=== PATIENT | male | born 1945 | race Caucasian/White ===

== ENCOUNTER 2017-05-01 07:16 | Day surgery (SDC) | payer MEDICARE ==
[~2017-05-01 07:16] MED LIST: LACTATED RINGERS 1,000 ML IV SCH
[2017-05-01 07:40] VITALS: RESP 18; TEMP 97
[2017-05-01] MEDS ORDERED: LACTATED RINGERS 1,000 ML IV ONE (07:46)
[2017-05-01 07:49] LABS: Glucose,Whole Blood 118 mg/dL (75-99)
[2017-05-01] MEDS ORDERED: GLYCOPYRROLATE 0.2 MG/ML 2 ML VIAL ONE (08:17)
[2017-05-01] MEDS ORDERED: PROPOFOL 10 MG/ML 20 ML VIAL IV ONE (08:17)
[2017-05-01] MEDS ORDERED: LIDOCAINE 1% INJ 10MG/ML (20 ML MDV) ONE (08:17)
[2017-05-01] MEDS ORDERED: ePHEDrine SULFATE/0.9% NACL/PF 50 MG/5 ML SYRINGE IV ONE (08:17)
--- NOTE | 2017-05-01 08:52 | P.PCN ---
Date of Procedure: 05/01/17 Preoperative Diagnosis: Postoperative Diagnosis: Procedure(s) Performed: Procedure: Total colonoscopy. Preoperative diagnosis: Screening for neoplasia, patient has history of polyps. Postoperative diagnosis: Exam within normal limits. Preparation: HalfLytely prep. Sedation: Was provided by anesthesia. Brief clinical history: The patient is a 71-year-old male who is scheduled for this evaluation for screening for neoplasia because of history of polyps. His last exam was around 6 years ago. The patient has no abdominal complaints, bleeding or anemia. Procedure: With the patient on his left lateral decubitus position and after informed consent and adequate sedation, the perianal area was inspected and it did not show any fissures or fistulas. There were no masses felt on digital rectal examination. The Olympus CFQ 160L video colonoscope was then inserted in the rectum in the usual fashion and advanced to the cecum. The mucosa appeared healthy. No polyps or tumors were seen or any obvious diverticular disease or other pathology. I retroflexed the endoscope in the rectum before the endoscope was withdrawn. The patient tolerated the procedure well. Plan: The patient was reassured. He will follow up with you as planned and I recommended repeat exam in 5 years. Implants: Indications for Procedure: Operative Findings: Description of Procedure:
[2017-05-01 09:11] VITALS: BP 112/70; PULSE 67
[2017-05-01 09:11] LABS: Glucose,Whole Blood 122 mg/dL (75-99)
== END 2017-05-01 09:31 | disposition home or self-care (01) ==
LOC: ORWHC2ENDO 07:16
DX: Z12.11 Encounter for screening for malignant neoplasm of colon (principal); Z86.010 Personal history of colon polyps; I48.91 Unspecified atrial fibrillation; Z79.01 Long term (current) use of anticoagulants; I49.9 Cardiac arrhythmia, unspecified; I10 Essential (primary) hypertension; E78.5 Hyperlipidemia, unspecified; Z85.07 Personal history of malignant neoplasm of pancreas; E07.9 Disorder of thyroid, unspecified; Z79.899 Other long term (current) drug therapy
CPT/HCPCS: J2001; J2704; G0105

== ENCOUNTER → 2020-05-25 | Outpatient (CLI) | payer MEDICARE ==
[2020-05-26 02:05] LABS: Hemoglobin A1C 7.2 % (4.0-6.0)
== END | disposition home or self-care (01) ==
LOC: LABWHC1 14:36
PROVIDERS: ATTEND Family Medicine
DX: E10.9 Type 1 diabetes mellitus without complications (principal)
CPT/HCPCS: 36415; 83036

== ENCOUNTER → 2020-05-25 | Outpatient (CLI) | payer MEDICARE ==
[2020-05-25 15:49] LABS: Appearance,Urine Clear (Clear); Bilirubin,Urine Negative (Negative); Blood,Urine Negative (Negative); Color,Urine Light Yellow; Glucose,Urine (UA) Negative (Negative); Ketones,Urine Negative (Negative); Leukocyte Esterase,Urine Negative (Negative); Nitrite,Urine Negative (Negative); Protein,Urine Negative (Negative); Urobilinogen,Urine <2.0 mg/dL (<2.0)
[2020-05-25 15:57] LABS: African American GFR (CKD) >90 (>60 ml/min/1.73 sqM); Anion Gap 5 mmol/L; Blood Urea Nitrogen 16 mg/dL (9-20); Calcium 9.3 mg/dL (8.4-10.2); Carbon Dioxide 29 mmol/L (22-30); Chloride 102 mmol/L (98-107); Glucose 211 mg/dL (74-99); INR 1.1 (<1.2); Non-African American GFR(CKD) >90 (>60 ml/min/1.73 sqM); Partial Thromboplastin Time 26.7 sec (22.0-30.0); Prothrombin Time 10.9 sec (9.0-12.0); Sodium 136 mmol/L (137-145)
[2020-05-25 16:05] LABS: Basophils # (A) 0.1 k/uL (0-0.2); Basophils % (A) 1 %; Eosinophils # (A) 0.1 k/uL (0-0.7); Eosinophils % (A) 1 %; HCT 44.6 % (39.0-53.0); HGB 14.3 gm/dL (13.0-17.5); Lymphocytes # (A) 2.2 k/uL (1.0-4.8); Lymphocytes % (A) 24 %; MCH 33.7 pg (25.0-35.0); MCHC 32.1 g/dL (31.0-37.0); MCV 105.1 fL (80.0-100.0); Macrocytosis Slight; Mean Platelet Volume 7.3; Monocytes # (A) 0.5 k/uL (0-1.0); Monocytes % (A) 6 %; Neutrophils # (A) 6.3 k/uL (1.3-7.7); Neutrophils % (A) 68 %; Platelet Count 264 k/uL (150-450); RBC 4.24 m/uL (4.30-5.90); RDW 13.4 % (11.5-15.5); WBC 9.3 k/uL (3.8-10.6)
--- NOTE | 2020-05-25 16:17 | XR ---
EXAMINATION TYPE: XR chest 2V DATE OF EXAM: 05/25/2020 COMPARISON: 08/28/2012 HISTORY: Shortness of breath TECHNIQUE: Frontal and lateral views of the chest are obtained. FINDINGS: Scattered senescent parenchymal changes noted. No evidence for infiltrate. No evidence for atelectasis. Heart size is stable. Mediastinal structures are stable and grossly unremarkable. No evidence for hilar prominence. Degenerative changes dorsal spine. IMPRESSION: 1. No evidence for acute pulmonary disease.
== END | disposition home or self-care (01) ==
LOC: LABPAT 14:27
PROVIDERS: ATTEND Orthopaedic Surgery Orthopaedic Surgery of the Spine
DX: Z01.818 Encounter for other preprocedural examination (principal); Z01.812 Encounter for preprocedural laboratory examination; M43.10 Spondylolisthesis, site unspecified; Z79.01 Long term (current) use of anticoagulants
CPT/HCPCS: 71046; 80048; 81003; 85025; 85610; 85730; 87070; 93005

== ENCOUNTER 2020-06-03 06:17 | Inpatient (IN) | payer MEDICARE ==
[2020-05-28 16:04] VITALS: BMI 30.8
[~2020-06-03 06:17] MED LIST changes: +DEXAMETHASONE SOD PHOSPHATE 10 MG/ML 1 ML VIAL IV ONE; -LACTATED RINGERS 1,000 ML IV SCH; +LIDOCAINE 1% (10MG/ML) FOR IV START INTRADERMA PRN; +ONDANSETRON 4 MG/2 ML VIAL IVP ONE; +ceFAZolin 1,000 MG in SODIUM CHLORIDE 0.9% IRRIGATIO 1,000 ML IRRIGATION ONE
[2020-06-03] MEDS ORDERED: LACTATED RINGERS 1,000 ML IV ONE ×3 (06:45→12:27)
[2020-06-03 06:59] LABS: Glucose,Whole Blood 114 mg/dL (75-99)
[2020-06-03] MEDS ORDERED: PROPOFOL 10 MG/ML 20 ML VIAL IV ONE (07:32)
[2020-06-03] MEDS ORDERED: MIDAZOLAM 2 MG/2 ML VIAL ONE (07:32)
[2020-06-03] MEDS ORDERED: SUCCINYLCHOLINE CHLORIDE 100 MG/5 ML SYR IV ONE (07:32)
[2020-06-03] MEDS ORDERED: ePHEDrine SULFATE/0.9% NACL/PF 50 MG/5 ML SYRINGE IV ONE (07:32)
[2020-06-03] MEDS ORDERED: KETAMINE 10 MG/ML 20 ML VIAL ONE (07:32)
[2020-06-03] MEDS ORDERED: HEPARIN SODIUM,PORCINE 10,000 UNIT/ML 1 ML VIAL ONE (07:32)
[2020-06-03] MEDS ORDERED: ROCURONIUM 10 MG/ML (10 ML VIAL) IV ONE (07:32)
[2020-06-03] MEDS ORDERED: SODIUM CHLORIDE 0.9% IRRIG 1,000 ML BTL IRRIGATION ONE (07:32)
[2020-06-03] MEDS ORDERED: LIDOCAINE 1% INJ 10MG/ML (20 ML MDV) ONE (07:32)
[2020-06-03] MEDS ORDERED: fentaNYL (PF) 50 MCG/ML 2 ML AMP ONE (07:32)
[2020-06-03] MEDS ORDERED: HYDROmorphone (PF) 1 MG/ML ONE (07:32)
[2020-06-03] MEDS ORDERED: THROMBIN (BOVINE) 5,000 UNIT VIAL TOPICAL ONE (07:38)
[2020-06-03] MEDS ORDERED: BUPIVACAINE (PF) 0.25% 30 ML VIAL SQ ONE (07:38)
[2020-06-03] MEDS ORDERED: GELATIN SPONGE,ABSORB (LARGE) 1 EACH SPONGE TOPICAL ONE (07:38)
[2020-06-03] MEDS ORDERED: LIDOCAINE 1% INJ 10MG/ML (20 ML MDV) SQ ONE (07:38)
[2020-06-03] MEDS ORDERED: SODIUM CHLORIDE 0.9% 100 ML with ceFAZolin 2,000 MG IV ONE ×2 (12:18)
[2020-06-03] MEDS ORDERED: BENZOCAINE/MENTHOL LOZENG 1 EACH LOZENGE MUCOUS MEM PRN (14:00)
[2020-06-03] MEDS ORDERED: HYDROcodone/APAP 5-325MG 1 EACH TAB PO PRN (14:00)
[2020-06-03] MEDS ORDERED: HYDROmorphone 0.5 MG/0.5 ML SYRINGE IVP PRN (14:00)
[2020-06-03] MEDS ORDERED: MAGNESIUM HYDROXIDE 2,400 MG/10 ML CUP PO PRN (14:00)
[2020-06-03] MEDS ORDERED: ONDANSETRON 4 MG/2 ML VIAL IVP PRN (14:00)
[2020-06-03] MEDS ORDERED: ACETAMINOPHEN TAB 500 MG TAB PO PRN (14:02)
--- NOTE | 2020-06-03 14:13 | P.OP ---
Date of Procedure: 06/03/20 Preoperative Diagnosis: Spinal stenosis L2-3 L3 4 L4 5, spondylolisthesis L2-3 L3 4, recurrent stenosis L2-3 L3 4 with history of laminectomy, degenerative disc disease, lower extremity radiculopathy, low back pain Postoperative Diagnosis: Same Anesthesia: GETA Pathology: none sent Condition: stable Disposition: PACU Description of Procedure: DESCRIPTION OF PROCEDURE(S): BRIEF OPERATIVE NOTE Preoperative Diagnosis: Spinal stenosis L2-3 L3 4 L4 5, spondylolisthesis L2-3 L3 4, recurrent stenosis L2-3 L3 4 with history of laminectomy, degenerative disc disease, lower extremity radiculopathy, low back pain Postoperative Diagnosis: Same, with incidental 2 mm durotomy which was closed primarily at surgery Procedure: Revision Laminectomy and decompression L2-3 L3 4 Laminectomy decompression L4 to 3 L3 4 L4 5 Computer navigation aided with CT 3-D reconstruction Minimally invasive Posterior lateral decompression and fusion L2-3 L3 4 L4 5 Use of computer navigation with 3-D reconstruction Minimally invasive Transforaminal lumbar interbody fusion for a 360 fusion L2-3 L3 4 L4 5 Discectomy for decompression L2-3 L3 4 L4 5 Placement of interbody graft L2-3 L3 4 L4 5 Use of computer navigation for fusion L2-3 4 and 5 Local autogenous bone grafting Aspiration of bone marrow from the pedicle of L2 on the right Repair of incidental 2 mm durotomy Use of bone graft extenders and use of Tisseel Surgeon: Dr. Cochran Veterinary Technologist: Damian HAWKINS who is present throughout the entire the case persistence during positioning, dissection, exposure, visualization, and all crucial elements of the case as well as closure. Anesthesia: General anesthesia per Dr. Dr. Denson Estimated blood loss: Approximately 500 mL with 200 given back through Cell [employer] Complications: We did have a 2 mm incidental durotomy at the level of L2-3 which was fixed primarily for a watertight closure and covered with Tisseel. Otherwise None apparent Components implanted: K2M minimally invasive Ventress pedicle screw system withscrews measuring 6.5 mm in diameter to rods one Katy interbody cage with 10 mL of osteo amp bio4 bone graft substitute and 30 mL of the BX bone fibers to supplement the local autogenous bone graft and bone marrow aspirate, as well as approximately 2 mL of Tisseel Disposition: To recovery room in good stable condition. OPERATIVE INDICATIONS The patient has had severe issues at their lower extremities particularly on the right side and severe pain in his low back for the past several years. Over the past few months however the patient had severe worsening of his pain at her back and her right lower extremity. he is having severe radicular symptoms at his right lower extremity with weakness. he is unable to obtain any comfort. We did aggressive conservative treatment with medications therapy and interventional pain management however she was not having any relief. His imaging showed severe stenosis at L2-3 L3 4 and L4 5 with recurrent stenosis L2- 3 and L3 4 with spondylolisthesis L2-3 L3 4. he also showed evidence of a listhesis with some dynamic instability particularly at L3 4. The patient has been through conservative treatment. We discussed various treatment options including surgery, and the patient wishes to proceed with surgery We discussed the risk, patient's alternatives and benefits of surgery including but not limited to, risk of bleeding risk of infection, risk of need for further surgery, risk of decreased, loss of motion, muscle function, malunion nonunion, hardware failure, nerve damage, paralysis, heart attack, blindness and . She understood issues with the current pandemic and the possibility of exposure. OPERATIVE SUMMARY After discussing all the risks, patient alternatives and benefits at length, the patient elected to proceed with surgical intervention, signed informed consent, and presented for their procedure. The patient was seen and examined in the preoperative holding area and the surgical site was marked. The patient was given antibiotics and brought to the operating room. The patient was sedated and intubated by anesthesia in standard fashion. The patient was positioned on to the operating room table in a prone position on the appropriate frame which was well-padded and well molded. We were careful to pad any bony prominences and pressure points. We were careful to maintain the patient's cervical spine and good neutral alignment and position throughout. The patient was prepped and draped in a normal standard fashion. An appropriate timeout and keystone protocol performed. We were able to proceed with the surgery. The local wound area was infiltrated with local anesthetic. I established bony reference point with the right iliac crest with 2 small stab incisions and to set screws to establish the reference point for the C-arm and CT navigation. This was done without any comfort dictation. With the appropriate levels confirmed was able to make small stab incisions over the appropriate pedicle sites bilaterally. Utilizing C-arm and the CT the computer navigation device I was able to establish bony landmarks at the right iliac crest for a bony reference point for the navigation device. We had excellent Reconstruction and visualization. Using CT guidance in multiple images with the reference points I was able to establish a Jamshidi needle over the lateral aspect of the pedicle and advanced the trocar into the pedicle being careful not to breech superiorly inferiorly medially or laterally using computer navigation device. Position was confirmed regularly with AP and lateral images and axial on CT reconstruction and with the computer navigation device. I was able to establish the trocar into the pedicle appropriately into the posterior aspect of the vertebral body bilaterally at the appropriate levels. This was done at each of the pedicle positions and each of the vertebrae at L2-3 4 and 5 with the bone marrow aspirate done at L2 on the right. I was able place the guidewire into the trocar and into the vertebral body appropriately under C-arm guidance. Dissection was taken down over the wire to the appropriate starting position for the screw placed. The appropriate length screw was chosen, threaded over the guidewire and screwed appropriately into the pedicle and vertebral body under C- arm guidance in excellent alignment and position with good bony purchase. This is done at each of the screw sites at the appropriate levels. With the screws intact I extended the incision to connect the screw hole sites on the most symptomatic side on the right. I dissected down to establish access over the pars and lamina to the base of the spinous process. I was able to expose the facet joint. The capsule the facet was taken down and showed some facet arthrosis at the joint. I was able to use a combination of curettes and Kerrison rongeurs and a high-speed drill to take down the facet joint and do a facetectomy. I was able get excellent foraminal decompression and central decompression with undermining across midline to perform a laminectomy centrally and contralaterally. I was able get good central decompression. No was made at L2-3 and L3 4 revision decompression with prior laminectomy being performed. We had to take particular extra time as there was significant bony overgrowth at the L3 4 space during decompression. The ligamentum flavum was taken down to further decompress centrally and at bilateral neural foramen. I was able get excellent decompression posteriorly. I was able to expose the disc space and visualize the traversing nerve root. Note was made of some disc protrusion and disc herniation that was adherent to the traversing nerve root at the level causing further compression of the nerve root. I was able to establish a annulotomy at the appropriate level protecting soft tissue and neural structures. Note was made of some disc desiccation at the disc. I performed a complete discectomy with accommodation of curettes and rasps and scrapers. I was able get good endplate preparation at the disc space. I sized for the appropriate size interbody spacer protecting the soft tissue and neural struct ures. The wound was copiously irrigated and suctioned dry. There is no evidence of any dural tear or leak at L3 4 and L4 5. During the decompression of L2-3 I did have a small 2 mm incidental durotomy. It had over with the arachnoid still holding in the fluid. I felt that I would be safest to do a primary closure at the space. And under loupe magnification with a 6-0 Prolene I performed a primary closure of the arthrotomy for a watertight closure. The closure was covered with Tisseel. We performed a Valsalva maneuver 2 and there is no evidence of any CSF leak after the repair. I was able to pack the disc space with local autogenous bone graft as well as a small amount of bone graft which was also placed into the interbody cage itself. Protecting the soft tissue structures and neural structures I was able place the interbody cage in good alignment and good position with good fit and fill at the interbody space. His issues was confirmed with C-arm guidance. Good hemostasis maintained. There is no evidence of any dural tear or leak. The wound was irrigated and suctioned dry. With the hardware intact, intraoperative C-arm imaging was again taken which showed good alignment and position of the hardware at the appropriate levels. We were then able to measure, contour and place the rods and appropriate hardware bilaterally. I was able to place capcrews, tighten them down, and torque them with the torque screwdriver appropriately. With this intact I was able to place the local autogenous bone graft with additional bone graft enhancer as necessary into the posterior lateral gutters over the decorticated transverse processes and facet joints on the contralateral side. The remainder of the bone graft was placed over the facet joint on the contralateral side aft er taking down the facet joint capsule. With the bone graft intact, a stable construct, and good decompression at the appropriate levels, we were able to proceed with closure. Good hemostasis was maintained. There is no evidence of dural tear or leak. The fascia was closed for a watertight closure. he subcuticular tissue was closed with absorbable suture. The wound was cleaned and dried and dressed with the appropriate dressing. The drapes were broken down. The patient was gently rolled back onto their hospital bed being careful to maintain their cervical spine and good neutral alignment and position. They were woken up by anesthesia, extubated, and brought to the recovery room in good stable condition. We'll keep him supine flat in bed over the next 24-48 hours before mobilization to allow the dural repair to heal appropriately. The patient will be admitted to the hospital for appropriate postoperative care, medical management and monitoring. We will continue to follow them closely about the postoperative course.
[2020-06-03 14:14] LABS: Glucose,Whole Blood 143 mg/dL (75-99)
--- NOTE | 2020-06-03 14:29 | FL ---
EXAMINATION TYPE: FL guidance operating room, XR lumbar spine 2 or 3V DATE OF EXAM: 06/03/2020 CLINICAL HISTORY: Lumbar fusion TECHNIQUE: Fluoroscopy. COMPARISON: None. FINDINGS: Fluoroscopic guidance was provided during procedure for performing physician. A total of 20 seconds seconds of fluoroscopic time was utilized during the procedure and 5 spot images was acqui red. Please see operative report for additional details. IMPRESSION: As Above.
[2020-06-03] MEDS: HYDROmorphone 0.5 MG/0.5 ML SYRINGE IVP PRN ×2 (14:45→14:51)
[2020-06-03] MEDS: LACTATED RINGERS 1,000 ML IV SCH (15:01)
[2020-06-03] MEDS: SODIUM CHLORIDE 0.9% 1,000 ML IV SCH (15:16)
[2020-06-03 16:37] LABS: Glucose,Whole Blood 154 mg/dL (75-99)
[2020-06-03] MEDS: INSULIN ASPART (NovoLOG) 100 UNIT/ML VIAL SQ SCH (17:31)
[2020-06-03] MEDS: INSULIN DETEMIR (LEVEMIR) 100 UNIT/ML SYR SQ SCH (17:32)
[2020-06-03] MEDS: HYDROcodone/APAP 5-325MG 1 EACH TAB PO PRN ×2 (17:32→20:52)
[2020-06-03] MEDS: LIPASE 5,000/PROTEASE 17,000/AMYLASE 24,000 PO SCH (17:32)
[2020-06-03] MEDS: HYDROmorphone 1 MG/ML 1 ML SYRINGE IVP PRN ×2 (19:21→22:47)
[2020-06-03 20:48] LABS: Glucose,Whole Blood 137 mg/dL (75-99)
[2020-06-03] MEDS: FLECAINIDE 50 MG TAB PO SCH (20:52)
[2020-06-04] MEDS: HYDROcodone/APAP 5-325MG 1 EACH TAB PO PRN ×6 (01:06→22:10)
[2020-06-04] MEDS: HYDROmorphone 1 MG/ML 1 ML SYRINGE IVP PRN ×6 (02:54→23:40)
[2020-06-04] MEDS: SODIUM CHLORIDE 0.9% 1,000 ML IV SCH ×3 (04:18→19:32)
[2020-06-04] MEDS: LACTATED RINGERS 1,000 ML IV SCH (04:19)
--- NOTE | 2020-06-04 04:48 | CONS ---
CONSULTATION DATE OF SERVICE: 06/03/2020 REASON FOR CONSULTATION: Advice regarding diabetes mellitus and other medical problems requested by Dr. Cochran. HISTORY OF PRESENT ILLNESS: This 74-year-old gentleman with a past medical history of multiple medical problems including history of atrial fibrillation, history of diabetes mellitus, hypertension, hyperlipidemia, history of DJD being followed by Dr. Adán Murray in the outpatient setting underwent revision laminectomy and decompression of L2, 3, 4 and laminectomy and decompression by Dr. Cochran. The patient tolerated the procedure. The patient is complaining of some pain at this time. There is no history of any fever or rigors. No history of headache, loss of consciousness, seizures. PAST MEDICAL HISTORY: History of atrial fibrillation, diabetes mellitus, hypertension, hyperlipidemia, history of DJD, history of vascular disorder. MEDICATIONS: Home medications are lisinopril, simvastatin, Xarelto, Creon, Lantus, Humalog, Tambocor, Tylenol. Doses are reviewed. ALLERGIES: None. FAMILY HISTORY: No history of heart disease. Son had possible PE. SOCIAL HISTORY: Previous history of smoking. No history of current smoking or alcohol intake. REVIEW OF SYSTEMS: ENT: No diminished hearing or diminished vision. CARDIOVASCULAR SYSTEM: As mentioned earlier. RESPIRATORY SYSTEM: As mentioned earlier. GI: No nausea. : No dysuria. NERVOUS SYSTEM: No numbness or weakness. ALLERGY/IMMUNOLOGY: No asthma or hayfever. MUSCULOSKELETAL: As mentioned earlier. HEMATOLOGY: As mentioned earlier. ENDOCRINE: Diabetes mellitus. CONSTITUTIONAL: As mentioned earlier. DERMATOLOGY: Negative. RHEUMATOLOGY: Negative. PSYCHIATRY: As mentioned earlier. PHYSICAL EXAMINATION: The patient is alert and oriented x3. Pulse 85, blood pressure 144/74, respirations 16, temperature 97.9, pulse ox 93% on 2 L. HEENT: Conjunctivae normal. Oral mucosa moist. NECK: No jugular venous distention. No carotid bruit. No lymph node enlargement. CARDIOVASCULAR: S1, S2 muffled. No S3, no S4. RESPIRATORY: Breath sounds diminished at the bases. No rhonchi. No crackles. ABDOMEN: Soft, obese. LEGS: No edema, no swelling. NERVOUS SYSTEM: Higher function as mentioned earlier. Moves all 4 limbs. No focal motor or sensory deficits. LYMPHATICS: No lymphadenopathy of the neck, axillae or groin. SKIN: No ulcer, rash or bleeding. JOINTS: No active deforming arthropathy. EXAMINATION OF THE BACK: Status post surgery. LABS: Accu-Cheks 114, 154 otherwise hematology prior to surgery normal except MCV 105 and the chemistry was showing sodium 136. ASSESSMENT: 1. Status post revision laminectomy and decompression, L2-3, L3-4. 2. Hyponatremia in the preoperative labs. 3. Increased MCV. 4. Atrial fibrillation. 5. Diabetes mellitus type 2. 6. Hypertension. 7. Hyperlipidemia. 8. Degenerative joint disease. 9. History of pancreatic cancer in 2016. 10.History of aortic aneurysm. 11.History of spinal stenosis. 12.History of degenerative joint disease. 13.History of appendectomy. 14.History of smoking. 15.Obesity with body mass of 31. 16.FULL CODE. RECOMMENDATIONS AND DISCUSSION: This 74-year-old gentleman present after surgery at this time, recommend to continue current medications, continue symptomatic treatment. Resume the home medications. DVT prophylaxis. I would closely follow with Orthopedic Surgery. Will initiate home medications. Incentive spirometry. Recommend repeat labs, pain management, DVT prophylaxis. The patient may be asked to follow up with primary physician closely after discharge. Thank you Dr. Cochran, for letting us participate in the care of this patient. MMODL / IJN: [id number] /
[2020-06-04 06:31] LABS: Basophils # (A) 0.1 k/uL (0-0.2); Basophils % (A) 0 %; Eosinophils # (A) 0.1 k/uL (0-0.7); Eosinophils % (A) 1 %; HGB 12.7 gm/dL (13.0-17.5); Lymphocytes # (A) 1.8 k/uL (1.0-4.8); Lymphocytes % (A) 11 %; MCH 33.3 pg (25.0-35.0); MCHC 31.9 g/dL (31.0-37.0); MCV 104.6 fL (80.0-100.0); Macrocytosis Slight; Monocytes # (A) 1.3 k/uL (0-1.0); Monocytes % (A) 8 %; Neutrophils # (A) 13.1 k/uL (1.3-7.7); Neutrophils % (A) 79 %; Platelet Count 257 k/uL (150-450); RBC 3.83 m/uL (4.30-5.90); RDW 13.4 % (11.5-15.5); WBC 16.5 k/uL (3.8-10.6)
[2020-06-04 07:27] LABS: Glucose,Whole Blood 112 mg/dL (75-99)
[2020-06-04] MEDS: INSULIN ASPART (NovoLOG) 100 UNIT/ML VIAL SQ SCH ×3 (08:43→17:44)
[2020-06-04] MEDS: LIPASE 5,000/PROTEASE 17,000/AMYLASE 24,000 PO SCH ×2 (08:44→17:44)
[2020-06-04] MEDS: lisinopriL 10 MG TAB PO SCH (08:49)
[2020-06-04] MEDS: ATORVASTATIN 20 MG TAB PO SCH (08:49)
[2020-06-04] MEDS: SENNOSIDES-DOCUSATE SODIUM 1 EACH TAB PO SCH (08:49)
[2020-06-04] MEDS: FLECAINIDE 50 MG TAB PO SCH ×2 (08:49→19:32)
[2020-06-04 09:36] LABS: African American GFR (CKD) 108.5 (60.0-200.0); Anion Gap 9.3 mmol/L (4.00-12.00); BUN/Creat Ratio 28.57 Ratio (12.00-20.00); Calcium 8.2 mg/dL (8.7-10.3); Carbon Dioxide 27.7 mmol/L (21.6-31.8); Non-African American GFR(CKD) 93.6 (60.0-200.0); Potassium 4.6 mmol/L (3.5-5.5)
--- NOTE | 2020-06-04 10:32 | P.PN ---
Progress Note - Text Progress Note Date: 06/04/20 Postoperative day #1 Patient is seen and examined today at bedside. The patient has some pain around the surgical site as expected. Pain is being controlled with medication. He is still staying flat in bed due to the small durotomy and repair at the time of surgery. He says his legs are not having any numbness or tingling. He denies any headaches. Physical Exam Afebrile with stable vital signs Abdomen is soft nontender. Chest has good excursion deep and space expiration The incision site is clean dry and intact. No erythema there is no purulence. Dressing is intact. Extremities have not had neurologic change from prior to surgery. His thigh and calf soft nontender. He has sustained dorsal to plantar flexion and EHL intact. Calves and thighs were soft nontender without evidence of DVT. Assessment/Plan Postoperative day #1 status post minimally invasive decompression and fusion L2 3 L3 4 L4 5 for his severe spinal stenosis with spondylolisthesis Status post incidental durotomy repair approximately 2 mm, keeping patient flat in bed until tomorrow morning Patient is progressing as expected from the surgery. Unfortunately we have had to keep him in bed due to the small incidental durotomy which was repaired. I would like to have that continue to heal overnight before we start sitting up. We will have him sit up tomorrow at breakfast and if he is not having any problems or headaches and it would be okay to increase his activity to his tolerance tomorrow on Monday. We will continue to increase the patient's mobilization with therapy on Monday if he is not having any evidence of spinal headaches or CSF leak. We will continue pain control with oral or IV medications. He continues to have his Agrawal in due to his strict bedrest status and we will continue the antibiotics until the Agrawal is out. We'll continue to follow patient closely.
[2020-06-04 12:06] LABS: Glucose,Whole Blood 139 mg/dL (75-99)
--- NOTE | 2020-06-04 13:11 | CDI ---
Documentation Clarification Form Date: 06/04/2020 12:58:54 PM From: Sophie Henry RN, CCDS Admit Date: 06/03/2020 06:17:00 AM Patient Name: Carlos Loredo Visit Number: [id number] ATTENTION: The Clinical Documentation Specialists (CDI) and [facility] Coding Staff appreciate your assistance in clarifying documentation. Please respond to the clarification below the line at the bottom and electronically sign. The CDI & [facility] Coding staff will review the response and follow-up if needed. Please note: Queries are made part of the Legal Health Record. If you have any questions, please contact the author of this message via ITS. Dr. Julio César Glynn Atrial Fibrillation is documented in the Medical Consult and requires further specificity. History/Risk Factors: Atrial Fib, DM, HTN, HLD, vascular disorder Clinical Indicators: 06/03 Medical Consult: "atrial fibrillation." EKG/telemetry: not ordered Treatment: Tambocor 50 mg PO BID In your professional opinion, can you please clarify the type of Atrial Fibrillation, if known? Chronic/Permanent Paroxysmal Persistent Other, please specify Unable to determine (Last Revision: November 2017) Unable to determine MTDD
--- NOTE | 2020-06-04 16:19 | PN ---
PROGRESS NOTE DATE OF SERVICE: 06/04/2020 This is a 74-year-old gentleman who was admitted after back surgery for severe DJD, is being closely monitored. No chest pain. No palpitations. No fever. PHYSICAL EXAMINATION: Alert and oriented x3. Pulse is 71, blood pressure 151/60, respirations 16, temperature 98.2, pulse ox 94% on room air. HEENT: Conjunctivae normal. NECK: No jugular venous distension. CARDIOVASCULAR SYSTEM: S1, S2. RESPIRATION: Breath sounds diminished at the bases. No rhonchi. No crackles. ABDOMEN: Soft, nontender. LEGS: No edema. No swelling. NERVOUS SYSTEM: No focal deficits. BACK: Status post surgery. LABS: WBC 16.2, hemoglobin 12.7, glucose 127. ASSESSMENT: 1. Status post revision laminectomy and decompression L2-3, L3-4. 2. Hyponatremia in the preop lab, improved. 3. Increased WBC, possibly reactive. 4. Increased MCV. 5. Atrial fibrillation, paroxysmal history. 6. Diabetes mellitus type 2. 7. Hypertension. 8. Hyperlipidemia. 9. History of DJD. 10.History of pancreatic cancer in 2016. 11.History of aortic aneurysm. 12.History of spinal stenosis. 13.History of DJD. 14.History of appendectomy. 15.History of smoking. 16.Obesity with body mass index of 31. 17.FULL CODE. RECOMMENDATION: Recommend to continue current management and incentive spirometry. DVT prophylaxis. Closely monitor. I would also recommend UA with micro and repeat labs, CBC, also. Further recommendations to follow. MMODL / IJN: [id number] /
[2020-06-04 17:17] LABS: Glucose,Whole Blood 178 mg/dL (75-99)
[2020-06-04] MEDS: INSULIN DETEMIR (LEVEMIR) 100 UNIT/ML SYR SQ SCH (17:43)
[2020-06-04] MEDS ORDERED: RIVAROXABAN 20 MG TAB PO SCH (18:30)
[2020-06-04 20:35] LABS: Glucose,Whole Blood 163 mg/dL (75-99)
[2020-06-04 20:39] LABS: Appearance,Urine Clear (Clear); Bacteria,Urine Rare /hpf; Bilirubin,Urine Negative (Negative); Blood,Urine Trace (Negative); Color,Urine Yellow; Glucose,Urine (UA) Negative (Negative); Ketones,Urine Negative (Negative); Leukocyte Esterase,Urine Small (Negative); Mucus,Urine Rare /hpf; Nitrite,Urine Negative (Negative); PH, Urine 6.5 (5.0-8.0); Protein,Urine Negative (Negative); RBC,Urine 1 /hpf (0-5); Specific Gravity,Urine 1.011 (1.001-1.035); Urobilinogen,Urine <2.0 mg/dL (<2.0); WBC,Urine 6 /hpf (0-5)
[2020-06-04 22:13] LABS: Hemoglobin A1C 7.1 % (4.0-6.0)
[2020-06-05] MEDS: HYDROcodone/APAP 5-325MG 1 EACH TAB PO PRN ×4 (02:54→18:05)
[2020-06-05] MEDS: HYDROmorphone 1 MG/ML 1 ML SYRINGE IVP PRN (06:21)
[2020-06-05 06:36] LABS: Basophils % (A) 0 %; Eosinophils # (A) 0.1 k/uL (0-0.7); Eosinophils % (A) 1 %; HCT 40.1 % (39.0-53.0); HGB 12.4 gm/dL (13.0-17.5); Lymphocytes # (A) 1.3 k/uL (1.0-4.8); Lymphocytes % (A) 5 %; MCH 32.6 pg (25.0-35.0); Macrocytosis Slight; Mean Platelet Volume 7.2; Monocytes # (A) 1.6 k/uL (0-1.0); Monocytes % (A) 7 %; Neutrophils # (A) 20.6 k/uL (1.3-7.7); Neutrophils % (A) 86 %; Platelet Count 257 k/uL (150-450); RBC 3.82 m/uL (4.30-5.90); RDW 13.6 % (11.5-15.5); WBC 23.9 k/uL (3.8-10.6)
[2020-06-05 06:46] LABS: Glucose,Whole Blood 127 mg/dL (75-99)
[2020-06-05] MEDS: lisinopriL 10 MG TAB PO SCH (08:28)
[2020-06-05] MEDS: LIPASE 5,000/PROTEASE 17,000/AMYLASE 24,000 PO SCH (08:28)
[2020-06-05] MEDS: INSULIN ASPART (NovoLOG) 100 UNIT/ML VIAL SQ SCH ×3 (08:29→17:48)
[2020-06-05] MEDS: FLECAINIDE 50 MG TAB PO SCH (08:29)
[2020-06-05] MEDS: SENNOSIDES-DOCUSATE SODIUM 1 EACH TAB PO SCH (08:29)
[2020-06-05] MEDS: ATORVASTATIN 20 MG TAB PO SCH (08:29)
--- NOTE | 2020-06-05 08:45 | P.PN ---
Progress Note - Text Progress Note Date: 06/05/20 Orthopedic Spine: History of present illness: Patient is a pleasant 74-year-old male who is seen and examined at the bedside following posterior lateral decompression and fusion performed Monday. During surgery he had an incidental 2 mm durotomy which was closed primarily during surgical intervention. He has remained flat in bed since surgery until this morning. He was able to sit up this morning to eat his breakfast. He is not experiencing any spinal headaches. He is very happy to be sitting upright. He would like to increase his mobility today. He states he is not currently experiencing any significant pain at his lumbar spine or lower extremities bilaterally. His Agrawal catheter continues to remain intact due to his remaining lying flat in bed. He would like to try to urinate on his own today. Patient states they are doing well postsurgically. Currently does not complain of nausea, vomiting, fever, or chills. Patient states pain has been adequately controlled. Patient is eating without difficulty. Patient continues to be seen and examined by medicine for his other medical diagnoses including hypertension, type 1 diabetes, and hyperlipidemia. He has a history of pancreatic cancer. Physical Exam Lumbar Fusion: Status post surgical day number Patient is awake, alert, and oriented 3 Vital signs stable Good chest excursion with deep inspiration and expiration Patient is able to roll over in bed without significant difficulty No pain on palpation over the surgical sites Small area of dried blood over the middle of the left incision site dressing Dorsiflexion, plantarflexion, and extensor hallucis longus positive sustained bilaterally No signs or symptoms of DVT; no calf pain; pneumatic cuffs intact bilateral lower extremities Agrawal catheter intact Neurovascularly intact bilaterally lower extremities Assessment: Status post L2-3, L3-4, and L4-5 minimally invasive posterior lateral decompression and fusion and transforaminal lumbar interbody fusion Incidental 2 mm durotomy closed primarily during surgical intervention L2-3, L3-4, and L4-5 spinal canal stenosis L2-3 and L3-4 spondylolisthesis and recurrent stenosis History of laminectomy Lumbar degenerative disc Low back pain with lower extremity radiculopathy Hypertension Hyperlipidemia Type 1 diabetes History of pancreatic cancer Plan: 1. Ambulate as tolerated; work with Physical Therapy to increase mobilization; patient had a 2 mm incidental durotomy during surgery which was repaired with primary closure. Patient had remained flat in bed until this morning following surgical intervention. He is able to sit up in bed without any evidence of spinal headaches. At this time, we will plan to increase his mobility. We discussed he may transfer to a bedside chair and begin ambulation with assistance. We will increase his mobility to his tolerance. 2. Continue pain control with IV and oral medications; we will plan to wean patient off of IV Dilaudid in anticipation for possible discharge home tomorrow, 06/06/2000 MAPS has been reviewed today, 06/05/2020, with an Overall Overdose Risk Score of 000. An "Opiod Start Talking" Form has been signed by the patient and myself in place in the patient's chart. A prescription has been written for [place] 5 mg/325 mg 1-2 tabs every 6 hours as needed for pain, dispensed #56. Patient should avoid anti-inflammatory medication over the next 6 weeks postoperatively. 3. Dressing to remain intact with Optifoam dressing; patient may shower with dressing is intact 4. We'll plan to discontinue the patient's Agrawal catheter today 5. Medical management can continue to manage patient for patient's other medical diagnoses including hypertension, hyperlipidemia, type 1 diabetes 6. We will continue to follow the patient closely; if the patient continues to improve and is not experiencing any spinal headaches is able to urinate without difficulty finding the discontinuation of his Agrawal catheter, may plan for discharge home tomorrow, 06/06/2020 7. Patient can follow-up with Damian Gomes PA-C or Dr. Cristhian Cochran at [facility] in 2-3 weeks following discharge
--- NOTE | 2020-06-05 11:26 | XR ---
EXAMINATION TYPE: XR chest 1V portable DATE OF EXAM: 06/05/2020 COMPARISON: 05/25/2020 INDICATION: Atelectasis TECHNIQUE: Single frontal view of the chest is obtained. FINDINGS: The heart size is normal. The pulmonary vasculature is normal. The lungs are clear. IMPRESSION: 1. No acute pulmonary process.
[2020-06-05 11:30] LABS: Glucose,Whole Blood 127 mg/dL (75-99)
--- NOTE | 2020-06-05 14:30 | P.DS ---
Providers Date of admission: 06/03/20 06:17 Attending physician: Jeramie Cochran Consults: 06/03/20 14:00 Consult Physician Routine Consulting Provider: Waleska Lopez Consult Reason/Comments: Medical management Do you want consulting provider notified?: Yes Primary care physician: Booker Murray MD Hospital Course: as per progress note today ptients mobility improving well denies headaches tolerating diet well extremities improving well S/p lumbar spinal fusion L2-5 for spinal stenosis and spondylolisthesis no evidence of CSF leak at present tompkins intact pain well controlled incision healing well okay for discharge home today if he is able to void freely after tompkins is discontinued outpatient follow up in approx 2 weeks or sooner if he is having any issues. will send home wiht woiund instructions, activity restrictions and oral pain meds Patient Condition at Discharge: Good Plan - Discharge Summary Discharge Rx Participant: No New Discharge Prescriptions: New Hydrocodone/Acetaminophen [Lolo 5-325] 1 - 2 each PO Q6HR PRN #56 tab PRN Reason: Pain No Action Simvastatin 40 mg PO DAILY Rivaroxaban [Xarelto] 20 mg PO PC-SUPPER lisinopriL [Lisinopril] 10 mg PO QAM Lipase/Protease/Amylase [Creelias Dr 12,000 Units Capsule] 2 tab PO BID INSULIN LISPRO (HumaLOG) [humaLOG] 5 unit SQ TID Flecainide [Tambocor] 50 mg PO BID Acetaminophen [Tylenol] 500 - 1,000 mg PO Q4-6H PRN PRN Reason: Pain Insulin Glargine [Lantus] 40 unit SQ AC-SUPPER Discharge Medication List Rivaroxaban [Xarelto] 20 mg PO PC-SUPPER 05/22/14 [History] Simvastatin 40 mg PO DAILY 05/22/14 [History] lisinopriL [Lisinopril] 10 mg PO QAM 05/22/14 [History] INSULIN LISPRO (HumaLOG) [humaLOG] 5 unit SQ TID 04/26/17 [History] Lipase/Protease/Amylase [Deepika Bennett 12,000 Units Capsule] 2 tab PO BID 04/26/17 [History] Acetaminophen [Tylenol] 500 - 1,000 mg PO Q4-6H PRN 05/28/20 [History] Flecainide [Tambocor] 50 mg PO BID 05/28/20 [History] Insulin Glargine [Lantus] 40 unit SQ AC-SUPPER 05/28/20 [History] Hydrocodone/Acetaminophen [Lolo 5-325] 1 - 2 each PO Q6HR PRN #56 tab 06/05/20 [Rx] Follow up Appointment(s)/Referral(s): Damian Gomes, UDAY [PHYSICIAN ATMOSPHERIC PHYSICS PROFESSOR] - 2 Weeks (Patient may follow-up with Damian Gomes PA-C or Dr. Cristhian Cochran at [facility] in 2-3 weeks following discharge. ) Activity/Diet/Wound Care/Special Instructions: 1. Patient may shower with Optifoam dressing intact. 2. Patient may remove Optifoam dressing in 3 days and shower without a dressing at that time. 3. Patient should refrain from driving until at least after their first follow- up appointment in the office. 4. Patient should avoid excessive bending, twisting, and lifting; no lifting greater than 10 pounds 5. Take medications as prescribed 6. Do not soak in tub Discharge Disposition: HOME SELF-CARE
[2020-06-05 15:25] VITALS: BP 173/85; PULSE 82; RESP 17; TEMP 98.7
--- NOTE | 2020-06-05 15:56 | PN ---
PROGRESS NOTE DATE OF SERVICE: 06/05/2020 This 74-year-old gentleman who was admitted after back surgery also had a history of DJD. Patient complains of occasional cough at this time. White count is elevated at 23.9. UA shows minimal UTI. Blood sugars are mildly elevated. Portable chest x-ray ordered today by me, which was reviewed personally by me, showed some bibasilar atelectasis. The patient is being closely monitored. Past medical history reviewed. REVIEW OF SYSTEMS: CARDIOVASCULAR SYSTEM: No angina. RESPIRATORY SYSTEM: As mentioned earlier. GI: No nausea, vomiting. : No dysuria or retention. NERVOUS SYSTEM: No numbness, weakness. CURRENT MEDICATIONS: Reviewed. They include Tylenol, [place] 5 mg, Pancrease, Lipitor, Cepacol, Rocephin, Dilaudid, Levemir, magnesium oxide, Zofran, Xarelto. PHYSICAL EXAMINATION: Patient is alert and oriented x3. Pulse 68, blood pressure 153/74, respiration 15, temperature 98.2, pulse ox 92% on room air. HEENT: Conjunctivae normal. NECK: No jugular venous distention. CARDIOVASCULAR SYSTEM: S1, S2 muffled. RESPIRATORY SYSTEM: Breath sounds diminished at the bases. A few rhonchi. No crackles. ABDOMEN: Soft. Ventral hernia present. LEGS: No edema. No swelling. NERVOUS SYSTEM: No focal deficit. EXAMINATION OF BACK: Status post surgery. LAB INVESTIGATIONS: Lab investigations at this time show WBC 23.9, hemoglobin 12.4, MCV 105. ASSESSMENT: 1. Status post revision laminectomy and decompression of L2-3, L3-4. 2. Hyponatremia in the preoperative labs, improved. 3. Increased white count; possible acute urinary tract infection. 4. Increased mean corpuscular volume. 5. Atrial fibrillation, paroxysmal, history. 6. Diabetes mellitus, type 2. 7. Hypertension. 8. Hyperlipidemia. 9. History of degenerative joint disease. 10.History of pancreatic cancer in 2016 and surgery. 11.History of aortic aneurysm. 12.History of spinal stenosis. 13.History of appendectomy. 14.History of smoking. 15.Obesity with body mass index of 31. 16.FULL CODE. RECOMMENDATIONS AND DISCUSSION: I recommend to continue current medications, continue with the monitoring, symptomatic treatment. Short course of antibiotics. Incentive spirometry. DVT prophylaxis. Repeat labs. Will follow the patient closely with you. Will continue with Lantus insulin for tight blood sugar control also. Patient is on Xarelto. Thank you, Dr. Cochran. DAYANA / TARIQ: [id number] /
[2020-06-05 17:18] LABS: Glucose,Whole Blood 205 mg/dL (75-99)
[2020-06-05] MEDS: INSULIN DETEMIR (LEVEMIR) 100 UNIT/ML SYR SQ SCH (17:48)
[2020-06-05] MEDS ORDERED: IPRATROPIUM-ALBUTEROL 3 ML NEB INHALATION SCH (20:00)
== END 2020-06-05 18:38 | disposition home or self-care (01) | DRG 454 ==
LOC: 2ORMAIN 06:17 → EDSTATUS 07:30 → 4SSUR 14:02
PROVIDERS: ADMIT Orthopaedic Surgery Orthopaedic Surgery of the Spine; ATTEND Orthopaedic Surgery Orthopaedic Surgery of the Spine
PROC: 00QT0ZZ Repair Spinal Meninges, Open Approach (ICD-10-PCS; principal; 2020-06-03 07:30)
PROC: 0SG1071 Fusion of 2 or more Lumbar Vertebral Joints with Autologous Tissue Substitute, Posterior Approach, Posterior Column, Open Approach (ICD-10-PCS; principal; 2020-06-03 07:30)
PROC: 00NY0ZZ Release Lumbar Spinal Cord, Open Approach (ICD-10-PCS; principal; 2020-06-03 07:30)
PROC: 0ST20ZZ Resection of Lumbar Vertebral Disc, Open Approach (ICD-10-PCS; principal; 2020-06-03 07:30)
PROC: 01NB0ZZ Release Lumbar Nerve, Open Approach (ICD-10-PCS; principal; 2020-06-03 07:30)
PROC: 0SG10AJ Fusion of 2 or more Lumbar Vertebral Joints with Interbody Fusion Device, Posterior Approach, Anterior Column, Open Approach (ICD-10-PCS; principal; 2020-06-03 07:30)
DX: M48.061 Spinal stenosis, lumbar region without neurogenic claudication (principal); G97.41 Accidental puncture or laceration of dura during a procedure; E87.1 Hypo-osmolality and hyponatremia; J98.11 Atelectasis; N39.0 Urinary tract infection, site not specified; M43.16 Spondylolisthesis, lumbar region; M51.16 Intervertebral disc disorders with radiculopathy, lumbar region; Y83.8 Other surgical procedures as the cause of abnormal reaction of the patient, or of later complication, without mention of misadventure at the time of the procedure; E10.9 Type 1 diabetes mellitus without complications; E66.9 Obesity, unspecified; I48.91 Unspecified atrial fibrillation; E78.5 Hyperlipidemia, unspecified; I10 Essential (primary) hypertension; H53.8 Other visual disturbances; M16.0 Bilateral primary osteoarthritis of hip; Z68.31 Body mass index [BMI] 31.0-31.9, adult; Z79.4 Long term (current) use of insulin; Z85.07 Personal history of malignant neoplasm of pancreas; Z86.79 Personal history of other diseases of the circulatory system; Z87.891 Personal history of nicotine dependence; Z90.49 Acquired absence of other specified parts of digestive tract; Z79.899 Other long term (current) drug therapy; Z79.01 Long term (current) use of anticoagulants; Z79.84 Long term (current) use of oral hypoglycemic drugs; Z82.49 Family history of ischemic heart disease and other diseases of the circulatory system; Z97.3 Presence of spectacles and contact lenses; Z98.890 Other specified postprocedural states; Z83.3 Family history of diabetes mellitus
CPT/HCPCS: 71045; 72100; 80048; 81001; 83036; 85025; 86850; 86891; 86900; 86901; 87040

== ENCOUNTER → 2020-06-10 | Outpatient (CLI) | payer MEDICARE ==
[2020-06-10 10:31] LABS: HCT 39.9 % (39.0-53.0); HGB 12.4 gm/dL (13.0-17.5); Hypochromasia Slight; MCH 33.4 pg (25.0-35.0); MCHC 31.1 g/dL (31.0-37.0); MCV 107.5 fL (80.0-100.0); Macrocytosis Moderate; Mean Platelet Volume 7.1; Platelet Count 442 k/uL (150-450); RBC 3.71 m/uL (4.30-5.90); RDW 13.4 % (11.5-15.5); WBC 12.2 k/uL (3.8-10.6)
[2020-06-10 15:58] LABS: African American GFR (CKD) 115.6 (60.0-200.0); Anion Gap 6.5 mmol/L (4.00-12.00); BUN/Creat Ratio 26.67 Ratio (12.00-20.00); Calcium 8.9 mg/dL (8.7-10.3); Carbon Dioxide 31.5 mmol/L (21.6-31.8); Non-African American GFR(CKD) 99.7 (60.0-200.0)
== END | disposition home or self-care (01) ==
LOC: LABWHC1 09:01
PROVIDERS: ATTEND Hospitalist
DX: M43.10 Spondylolisthesis, site unspecified (principal)
CPT/HCPCS: 36415; 80048; 85027

== ENCOUNTER → 2021-03-23 | Outpatient (CLI) | payer MEDICARE ==
[2021-03-23 09:34] LABS: HCT 46.3 % (39.0-53.0); HGB 14.9 gm/dL (13.0-17.5); MCHC 32.3 g/dL (31.0-37.0); MCV 105.2 fL (80.0-100.0); Macrocytosis Slight; Mean Platelet Volume 7.2; Platelet Count 310 k/uL (150-450); RDW 13.1 % (11.5-15.5); WBC 9.5 k/uL (3.8-10.6)
[2021-03-23 09:47] LABS: African American GFR (CKD) >90 (>60 ml/min/1.73 sqM); Anion Gap 7 mmol/L; Blood Urea Nitrogen 19 mg/dL (9-20); Carbon Dioxide 26 mmol/L (22-30); Chloride 104 mmol/L (98-107); Non-African American GFR(CKD) >90 (>60 ml/min/1.73 sqM); Potassium 4.8 mmol/L (3.5-5.1); Sodium 137 mmol/L (137-145)
== END | disposition home or self-care (01) ==
LOC: LABPAT 09:04
PROVIDERS: ATTEND Internal Medicine Interventional Cardiology
DX: Z01.812 Encounter for preprocedural laboratory examination (principal); I48.0 Paroxysmal atrial fibrillation
CPT/HCPCS: 80051; 82565; 84520; 85027

== ENCOUNTER 2021-03-26 06:47 | Day surgery (SDC) | payer MEDICARE ==
[2021-03-24 14:00] VITALS: BMI 31.7
[2021-03-26] MEDS ORDERED: SODIUM CHLORIDE 0.9% 1,000 ML IV SCH (06:53)
[2021-03-26] MEDS ORDERED: SODIUM CHLORIDE 0.9% 500 ML 500 ML IV ONE (07:06)
[2021-03-26 07:17] LABS: Glucose,Whole Blood 131 mg/dL (75-99)
[2021-03-26 07:19] VITALS: TEMP 98.1
[2021-03-26] MEDS ORDERED: PROPOFOL 10 MG/ML 20 ML VIAL IV ONE (07:55)
[2021-03-26] MEDS ORDERED: ZINC OXIDE 20% OINT 28.4 GM TUBE TOPICAL PRN (08:17)
[2021-03-26 08:20] VITALS: RESP 16
[2021-03-26 10:26] VITALS: BP 135/70; PULSE 71
--- NOTE | 2021-03-26 11:28 | CE ---
CARDIAC ELECTROPHYSIOLOGY REPORT ELECTRICAL CARDIOVERSION REPORT: DATE OF SERVICE: 03/26/2021 PROCEDURE: Electrical cardioversion. INDICATION: Paroxysmal symptomatic atrial fibrillation. CLINICAL INFORMATION: Mr. 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 He has been in atrial fibrillation for the past 2 weeks and I increased the dose of flecainide without success. Advised electrical cardioversion which he had done more than 3 years ago with good success. He was brought in for the procedure electively. PROCEDURE NOTE: Under the influence of ultra short-acting intravenous anesthetic agent with the attendance of the anesthesiologist, initial shock of 200 joules was delivered with anterior and posterior patches. Patient remained in atrial fib, did not convert to sinus rhythm. A repeat shock of 250 joules was also given without success. Patient remained in atrial fibrillation. This was therefore an unsuccessful electrical cardioversion. I discussed with the patient and . I will recommend evaluation by electrophysiology for pulmonary vein isolation. The left atrium is within the normal range and LV function is well preserved and he has no obstructive CAD. MMODL / IJN: [id number] /
== END 2021-03-26 09:44 | disposition home or self-care (01) ==
LOC: CATHCVL 06:47
PROVIDERS: ATTEND Internal Medicine Interventional Cardiology
DX: I48.0 Paroxysmal atrial fibrillation (principal); Z79.899 Other long term (current) drug therapy; I10 Essential (primary) hypertension; E78.5 Hyperlipidemia, unspecified; Z87.891 Personal history of nicotine dependence; Z82.49 Family history of ischemic heart disease and other diseases of the circulatory system; I25.10 Atherosclerotic heart disease of native coronary artery without angina pectoris; E78.00 Pure hypercholesterolemia, unspecified; Z79.01 Long term (current) use of anticoagulants; Z79.4 Long term (current) use of insulin
CPT/HCPCS: 92960; J2704

== ENCOUNTER → 2021-05-06 | Outpatient (CLI) | payer MEDICARE ==
[2021-05-06 09:05] LABS: HGB 15.6 gm/dL (13.0-17.5); MCH 34.2 pg (25.0-35.0); MCHC 33.1 g/dL (31.0-37.0); MCV 103.2 fL (80.0-100.0); Macrocytosis Slight; Mean Platelet Volume 7.4; Platelet Count 362 k/uL (150-450); RBC 4.55 m/uL (4.30-5.90); RDW 13.6 % (11.5-15.5); WBC 8.9 k/uL (3.8-10.6)
[2021-05-06 09:46] LABS: African American GFR (CKD) >90 (>60 ml/min/1.73 sqM); Anion Gap 7 mmol/L; Blood Urea Nitrogen 18 mg/dL (9-20); Carbon Dioxide 29 mmol/L (22-30); Chloride 103 mmol/L (98-107); Non-African American GFR(CKD) 85 (>60 ml/min/1.73 sqM); Potassium 5.5 mmol/L (3.5-5.1); Sodium 139 mmol/L (137-145)
== END | disposition home or self-care (01) ==
LOC: LABPAT 08:02
PROVIDERS: ATTEND Internal Medicine Clinical Cardiac Electrophysiology
DX: Z01.812 Encounter for preprocedural laboratory examination (principal); I48.11 Longstanding persistent atrial fibrillation
CPT/HCPCS: 36415; 80051; 82565; 84520; 85027

== ENCOUNTER 2021-05-18 05:54 | Day surgery (SDC) | payer MEDICARE ==
[2021-05-10 15:47] VITALS: BMI 31.7
[~2021-05-18 05:54] MED LIST changes: -DEXAMETHASONE SOD PHOSPHATE 10 MG/ML 1 ML VIAL IV ONE; +DEXAMETHASONE SOD PHOSPHATE 4 MG/ML 1 ML VIAL IV ONE; +LACTATED RINGERS 1,000 ML IV SCH; -LIDOCAINE 1% (10MG/ML) FOR IV START INTRADERMA PRN; -ceFAZolin 1,000 MG in SODIUM CHLORIDE 0.9% IRRIGATIO 1,000 ML IRRIGATION ONE
[2021-05-18] MEDS ORDERED: SODIUM CHLORIDE 0.9% 1,000 ML IV SCH (05:55)
[2021-05-18 06:31] LABS: Glucose,Whole Blood 116 mg/dL (75-99)
[2021-05-18] MEDS ORDERED: HYDROmorphone 0.5 MG/0.5 ML SYRINGE IVP PRN (07:00)
[2021-05-18] MEDS ORDERED: LIDOCAINE 1% INJ 10MG/ML (20 ML MDV) ONE ×2 (07:07→07:26)
[2021-05-18] MEDS ORDERED: ROCURONIUM 10 MG/ML (5 ML VIAL) IV ONE (07:26)
[2021-05-18] MEDS ORDERED: PROTAMINE SULFATE 10 MG/ML 5 ML VIAL IV ONE (07:26)
[2021-05-18] MEDS ORDERED: PHENYLEPHRINE-0.9% NACL SYG 1,000 MCG/10 ML SYRINGE ONE (07:26)
[2021-05-18] MEDS ORDERED: HEPARIN SODIUM,PORCINE 10,000 UNIT/ML 1 ML VIAL ONE (07:26)
[2021-05-18] MEDS ORDERED: fentaNYL (PF) 50 MCG/ML 2 ML AMP ONE (07:26)
[2021-05-18] MEDS ORDERED: MIDAZOLAM 2 MG/2 ML VIAL ONE (07:26)
[2021-05-18] MEDS ORDERED: FUROSEMIDE 10 MG/ML 2 ML VIAL ONE (07:26)
[2021-05-18] MEDS ORDERED: NEOSTIGMINE 1 MG/ML 10 ML VIAL ONE (07:26)
[2021-05-18] MEDS ORDERED: SUCCINYLCHOLINE CHLORIDE 100 MG/5 ML SYR IV ONE (07:26)
[2021-05-18] MEDS ORDERED: PROPOFOL 10 MG/ML 20 ML VIAL IV ONE (07:26)
[2021-05-18] MEDS ORDERED: GLYCOPYRROLATE 0.2 MG/ML 2 ML VIAL ONE (07:26)
[2021-05-18] MEDS ORDERED: LIDOCAINE 1% INJ 10MG/ML (10 ML MDV) SQ ONE (08:07)
[2021-05-18] MEDS ORDERED: HEPARIN SOD,PORK IN 0.45% NACL 25,000 UNIT in 0.45% NACL 1 250ML.BAG IV ONE (08:14)
[2021-05-18] MEDS ORDERED: HEPARIN SODIUM (1,000 UNIT/ML) 1,000 UNIT in SODIUM CHLORIDE 0.9% 1,000 ML IRRIGATION ONE (09:00)
[2021-05-18] MEDS ORDERED: IOPAMIDOL-370 100ML BTL INJ ONE (09:45)
--- NOTE | 2021-05-18 11:38 | P.EPPROC ---
- EP Procedure Note Electrophysiology Procedure Note: PROCEDURE A. fib ablation DIAGNOSIS Atrial fibrillation, symptomatic, refractory to therapy Persistent RESULT No left atrial appendage mass seen on intracardiac echo Successful A. fib ablation/pulmonary vein isolation of all veins using cryo- ablation Complete entrance block in all 4 veins confirmed No evidence for phrenic nerve injury Linear ablation along fractionated electrograms in the posterior septum of the left atrium Linear ablation along the ridge between left atrial appendage and left-sided pulmonary veins Esophageal deflection YES Electrical cardioversion with a synchronized shock across the chest YES PROCEDURE DETAILS Patient was brought to the EP lab in a fasting state. Written informed consent was obtained prior to the procedure. Procedure performed under general anesthesia After initial muscle relaxant use, muscle relaxants were not given thereafter in order to assess phrenic nerve during procedure. Patient prepped and draped as per protocol Full cryo-set up with standard preparation of the cryoablation tools done. Femoral Venous access obtained on the right and left groins Venous and arterial Sheaths placed. Diagnostic catheters for the high right atrium, phrenic nerve stimulation and pacing, His bundle, RV and coronary sinus placed Intracardiac echo catheter placed. Long sheath placed in the right atrium Left and right transseptal catheterization performed under intracardiac echo guidance. Intravenous heparin with aCT above 300 Later, catheter positioning and balloon positioning in the left atrium, under intracardiac echo guidance Diagnostic EP study Baseline measurements AH 25, HV 56 Sinus cycle length 1146, SD 211 Transseptal catheterization performed RA pressure 10/5/8 LA pressure 15/7/9 Transseptal catheterization performed with standard sheath. The cryoablation sheath was then placed with an over the wire exchange without any acute complications. All 4 pulmonary veins were isolated in the following sequence: Left superior followed by left inferior followed by right superior followed by right inferior The cryo-ablation balloon was placed at the os of each vein 1.5 mL of IV dye was injected to confirm an occluded vein Goal during cryoablation was to achieve complete occlusion of the pulmonary vein, achieve -30 degrees C at 30 seconds and achieve -40 degrees C at 60 seconds and a time to effect of less than 60-90 seconds, . If not the balloon was repositioned to obtain this result After completion of Cryoblation with durations from 180-240 seconds, entrance block was confirmed with the Attain circular catheter in a roving fashion around the antrum of the pulmonary veins Phrenic nerve pacing was performed from the SVC, right innominate vein area and diaphragm voltage was monitored. Diaphragmatic contractions were also monitored manually for strength of contraction. Parameter goals for each cryo freeze Complete occlusion of the appropriate vein -30 degrees C by 30 seconds -40 degrees C by 60 seconds Minimum between minus 40-55 degrees C Thaw time greater than 10 seconds Balloon visualized by intracardiac echo The esophagus was intubated. Esophageal Temperature monitoring with a CIRCA catheter formed. Esophageal deflection for hypothermia of the esophagus below 30 degrees C Left superior pulmonary vein Complete isolation, entrance block Left inferior pulmonary vein Complete isolation, entrance block Large Right superior pulmonary vein, during phrenic nerve pacing, superior and inferior tributaries individually isolated, segmental ablation of the large antrum Complete isolation, entrance block Large Right inferior pulmonary vein, during phrenic nerve pacing Complete isolation, entrance block At the end of the procedure the Achieve catheter was once again used to check for entrance block Phrenic nerve stimulation was performed to confirm diaphragmatic stimulation the end of the procedure Cine fluoroscopy was performed at the very end of the procedure to confirm movement of both diaphragms with inspiration and expiration Following this the sheath was exchanged and RF catheter was placed [place] mapping was performed Pulmonary veins up completely isolated at the antral level Fractionated electrograms noted in the posterior septum. Linear ablation of the procedure septum Very rapid fractionated electrograms in the ridge between the left atrial appendage and the left-sided veins Linear ablation performed all along the ridge, avoiding the mitral isthmus The patient remained in atrial fibrillation at the end of the procedure A 200 J biphasic shock was used to artery with the patient to sinus rhythm At the end of the procedure the patient was extubated Heparin was reversed Venous sheaths were removed and hemostasis assured with Vascade in the right groin and flow stasis in the left groin PROCEDURES PERFORMED Diagnostic EP study CS pacing and recording Left and right transseptal catheterization 3D mapping) Intracardiac echocardiography Pulmonary vein isolation with transseptal and comprehensive EPS, [id number] Left atrial ridge, linear ablation, +[id number] Linear ablation, left atrium, +[id number] Electrical cardioversion with a synchronized shock across the chest [id number]
[2021-05-18] MEDS ORDERED: SODIUM CHLORIDE 0.9% 250 ML IV ONE (11:39)
--- NOTE | 2021-05-18 11:39 | P.PRLE ---
RE: Carlos Loredo Dear Dr. Murray Patient underwent ablation for atrial fibrillation with pulmonary vein isolation and linear ablation in the left atrium While his left atrium is quite enlarged, the left atrial pressures are in the normal range He will remain on Xarelto and his other cardiac medications He will follow with you and Dr. Landeros as before Thank you for entrusting me with the care of the patient Warm regards Sincerely Ahsan Snyder
[2021-05-18 12:12] LABS: Glucose,Whole Blood 131 mg/dL (75-99)
[2021-05-18] MEDS ORDERED: ACETAMINOPHEN IV (For NPO) 1,000 MG in EMPTY BAG 1 BAG IVPB ONE (14:00)
[2021-05-18] MEDS: ACETAMINOPHEN TAB 325 MG TAB PO PRN ×2 (14:49→21:56)
[2021-05-18] MEDS ORDERED: INSULIN DETEMIR (LEVEMIR) 100 UNIT/ML SYR SQ SCH (17:30)
[2021-05-18] MEDS ORDERED: RIVAROXABAN 20 MG TAB PO SCH (18:00)
[2021-05-18] MEDS: INSULIN ASPART (NovoLOG) 100 UNIT/ML VIAL SQ SCH (18:09)
[2021-05-18 18:10] LABS: Glucose,Whole Blood 128 mg/dL (75-99)
[2021-05-18 20:28] LABS: Glucose,Whole Blood 281 mg/dL (75-99)
[2021-05-18] MEDS: FLECAINIDE 50 MG TAB PO SCH (21:55)
[2021-05-19 07:20] LABS: Glucose,Whole Blood 222 mg/dL (75-99)
[2021-05-19 07:54] VITALS: BP 131/76; PULSE 67; RESP 16; TEMP 97.3
[2021-05-19] MEDS: FLECAINIDE 50 MG TAB PO SCH (07:55)
[2021-05-19] MEDS: INSULIN ASPART (NovoLOG) 100 UNIT/ML VIAL SQ SCH (07:55)
[2021-05-19] MEDS ORDERED: INSULIN ASPART (NovoLOG) 100 UNIT/ML VIAL SQ ONE (08:00)
[2021-05-19] MEDS ORDERED: ATORVASTATIN 20 MG TAB PO SCH (09:00)
[2021-05-19] MEDS ORDERED: lisinopriL 10 MG TAB PO SCH (09:00)
--- NOTE | 2021-05-19 16:06 | DS ---
DISCHARGE SUMMARY Mr. Loredo is a patient of Dr. Landeros and Dr. Murray who underwent atrial fibrillation ablation yesterday. He is doing well. He has been ambulating around the hallways. His groins have healed well. There is no hematoma, no swelling. No chest discomfort at all. He does have a sore throat. On examination, his vitals are stable. Heart rates are normal. Rhythm is irregular. Twelve-lead ECG shows sinus rhythm with a mildly prolonged NH interval, nonspecific ST- T abnormality. Heart sounds: S1, S2 normal. No murmurs or gallops or rub. Clear lungs. No rhonchi, no crackles. No JVD. No hematoma in either groin. No lower extremity edema. Abdomen is soft, nontender. IMPRESSION: 1. Persistent atrial fibrillation. 2. Status post atrial fibrillation ablation. PLAN: Continue anticoagulation. Continue cardiac medications for now. I emphasized the importance of continuing anticoagulation uninterrupted at this time to prevent strokes. He has been ambulating in the hallways. If he is stable, then by 12 noon he should be able to go home and follow up with Dr. Landeros in about a week or so. In about 6-8 weeks, the dose of flecainide may be tapered. MMODL / IJN: [id number] /
== END 2021-05-19 12:22 | disposition home or self-care (01) ==
LOC: CATHEP 05:54 → 6NMEDSUR 11:06 → CATHEP 05-19 12:22
PROVIDERS: ATTEND Internal Medicine Clinical Cardiac Electrophysiology
DX: I48.91 Unspecified atrial fibrillation (principal); Z79.01 Long term (current) use of anticoagulants
CPT/HCPCS: 92960; 93662; 93609; 93656; 93657; 84132; 87635; C1894 ×2; C1769 ×5; C1760; C1730 ×2; C1759; C1893; C1733; C1766; C1732; J1644 ×2; J2001; Q9967

== ENCOUNTER 2022-07-05 06:25 | Day surgery (SDC) | payer MEDICARE ==
[2022-06-30 12:20] VITALS: BMI 31.7
[~2022-07-05 06:25] MED LIST changes: -DEXAMETHASONE SOD PHOSPHATE 4 MG/ML 1 ML VIAL IV ONE; -LACTATED RINGERS 1,000 ML IV SCH; -ONDANSETRON 4 MG/2 ML VIAL IVP ONE; +SODIUM CHLORIDE 0.9% 1,000 ML IV SCH
[2022-07-05 07:02] LABS: Glucose,Whole Blood 119 mg/dL (70-110)
[2022-07-05] MEDS ORDERED: SODIUM CHLORIDE 0.9% 500 ML 500 ML IV ONE (07:04)
[2022-07-05 07:10] VITALS: RESP 16
[2022-07-05] MEDS ORDERED: LIDOCAINE 2% INJ 20 MG/ML (2 ML VIAL) ONE (07:27)
[2022-07-05] MEDS ORDERED: PHENYLEPHRINE-0.9% NACL SYG 1,000 MCG/10 ML SYRINGE ONE (07:27)
[2022-07-05] MEDS ORDERED: PROPOFOL 10 MG/ML 20 ML VIAL IV ONE (07:27)
[2022-07-05] MEDS ORDERED: ePHEDrine 50 MG/ML 1 ML VIAL ONE (07:27)
[2022-07-05 07:28] VITALS: TEMP 97
--- NOTE | 2022-07-05 08:41 | CE ---
CARDIAC ELECTROPHYSIOLOGY REPORT PROCEDURE PERFORMED: Electrical cardioversion. INDICATIONS: Persistent atrial fibrillation with a history of prior pulmonary vein isolation, hypertension, and hypercholesterolemia. Mr. Loredo was brought in for elective electrical cardioversion. He has persistent AFib, has had previous pulmonary vein isolation performed in 2020. He was in atrial fib for the past couple of weeks. After trying increased dose of flecainide without success, I advised him to have electrical cardioversion. Rationale, risks, benefits, and options were explained. He understood all details and was brought in for the procedure. PROCEDURE NOTE: Under the influence of [id number] intravenous anesthetic agent with the attendance of the anesthesiologist, a single shock was delivered with anterior and posterior patches of 200 joules. The patient converted to sinus rhythm, had sinus bradycardia, transient hypotension, requiring phenylephrine. He was neurologically intact, hemodynamically stable, pressure was about 97/60, pulse rate was about 42 per minute. I will wait till he is up and about ambulatory, has had a meal, and he will be discharged on a reduced dose of flecainide at 75 mg b.i.d. and we will hold metoprolol succinate for 24 hours. I will see him in the office in 1 week. Details were discussed with the patient as well as his . This was a successful electrical cardioversion. He will be discharged later on today once he is up and ambulatory. MMODL / IJN: [id number] /
[2022-07-05 16:26] VITALS: BP 104/64; PULSE 70
== END 2022-07-05 10:32 | disposition home or self-care (01) ==
LOC: CATHCVL 06:25
PROVIDERS: ATTEND Internal Medicine Interventional Cardiology
DX: I48.19 Other persistent atrial fibrillation (principal); I25.10 Atherosclerotic heart disease of native coronary artery without angina pectoris; I10 Essential (primary) hypertension; E78.00 Pure hypercholesterolemia, unspecified; E78.5 Hyperlipidemia, unspecified; E11.9 Type 2 diabetes mellitus without complications; M19.90 Unspecified osteoarthritis, unspecified site; Z79.4 Long term (current) use of insulin; Z79.899 Other long term (current) drug therapy; Z98.890 Other specified postprocedural states; Z85.07 Personal history of malignant neoplasm of pancreas
CPT/HCPCS: 92960; J2370; J2704; J2001

== ENCOUNTER 2023-01-02 08:38 | Day surgery (SDC) | payer MEDICARE ==
[2023-01-02] MEDS ORDERED: LACTATED RINGERS 1,000 ML IV ONE ×2 (09:15→11:12)
[2023-01-02 09:27] VITALS: TEMP 97
[2023-01-02 09:45] LABS: Glucose,Whole Blood 114 mg/dL (70-110)
[2023-01-02 10:04] LABS: Calcium 8.9 mg/dL (8.4-10.2); Potassium 4.9 mmol/L (3.5-5.1)
[2023-01-02] MEDS ORDERED: PROPOFOL 10 MG/ML 20 ML VIAL IV ONE (10:30)
[2023-01-02] MEDS ORDERED: LIDOCAINE 2% INJ 20 MG/ML (2 ML VIAL) ONE (10:30)
[2023-01-02] MEDS ORDERED: MIDAZOLAM 2 MG/2 ML VIAL ONE (10:30)
[2023-01-02 11:16] LABS: Glucose,Whole Blood 90 mg/dL (70-110)
[2023-01-02 11:35] VITALS: RESP 18
[2023-01-02 11:53] VITALS: BP 108/50; PULSE 68
--- NOTE | 2023-01-02 12:10 | CE ---
CARDIAC ELECTROPHYSIOLOGY REPORT DATE OF SERVICE: 01/02/2023. PROCEDURE PERFORMED: Electrical cardioversion. INDICATION: Persistent atrial fibrillation. CLINICAL INFORMATION: Mr. Carlos Loredo is a 77-year-old gentleman, history of pancreatic cancer, previous surgical repair of abdominal aortic aneurysm, hypertension, and persistent atrial fibrillation, for which he had an ablation performed in April 2021. His last cardioversion was in June of last year. He comes into the office with complaints of shortness of breath and is in atrial fibrillation. He is quite symptomatic. I advised electrical cardioversion after due discussion. He understood all details and wished to proceed with the procedure. PROCEDURE NOTE: Under the influence of mzpye-rbsrs-abnwwe intravenous anesthetic agent with the attendance of the anesthesiologist, a single shock was delivered with anterior and posterior patches. This was a 120-joule shock. The patient converted to sinus rhythm and remained hemodynamically stable. This was a successful electrical cardioversion. Details were discussed with the patient and his , and he will be discharged later on today, and I will see him in the office on the . MMODL / IJN: [id number] /
== END 2023-01-02 11:54 | disposition home or self-care (01) ==
LOC: OR 08:38
PROVIDERS: ATTEND Internal Medicine Interventional Cardiology
DX: I48.19 Other persistent atrial fibrillation (principal); I10 Essential (primary) hypertension; E78.5 Hyperlipidemia, unspecified; E11.9 Type 2 diabetes mellitus without complications; F10.90 Alcohol use, unspecified, uncomplicated; Z87.891 Personal history of nicotine dependence; Z79.4 Long term (current) use of insulin; Z79.899 Other long term (current) drug therapy
CPT/HCPCS: 93005; 92960; 80048; J2250; J2704; J2001

== ENCOUNTER 2023-01-03 15:09 | Emergency (ER) | payer MEDICARE ==
[2023-01-03 15:26] VITALS: RESP 16
[2023-01-03 15:27] LABS: Glucose,Whole Blood 236 mg/dL (70-110)
[2023-01-03] MEDS ORDERED: SODIUM CHLORIDE 0.9% 500 ML 500 ML IV STA ×2 (15:58→17:46)
--- NOTE | 2023-01-03 15:59 | ED ---
Dizziness HPI - General Chief Complaint: Dizziness Stated Complaint: LETHARGIC Time Seen by Provider: 01/03/23 15:32 Source: patient Mode of arrival: wheelchair Limitations: no limitations - History of Present Illness Initial Comments: This patient is a 77-year-old man who presents with complaint that he is feeling lightheaded/dizzy. He is having generalized weakness and fatigue. The symptoms were noted around the time he went to work today around 11. The patient states that yesterday he had a cardioversion for atrial fibrillation. He is not having chest pain or dyspnea. No diaphoresis, nausea or vomiting. He states that it does not feel like a stroke to him there is not focal weakness. He states things are better if he is just sitting but when he is up and moving around he feels fatigued and weak. He feels like he is going to pass out. Complaint: lightheadedness -: hour(s) Timing: gradual onset Description: lightheadedness History of Same: No History of Trauma: No Severity: moderate Improves With: remaining still Worsens With: exertion Associated Symptoms: weakness - Related Data Home Medications Medication Instructions Recorded Confirmed Rivaroxaban [Xarelto] 20 mg PO AC-SUPPER 05/22/14 01/03/23 Simvastatin 40 mg PO DAILY 05/22/14 01/03/23 INSULIN LISPRO (HumaLOG) [humaLOG] 5 units SQ TID 04/26/17 01/03/23 Flecainide [Tambocor] 100 mg PO BID 05/28/20 01/03/23 Insulin Glargine [Lantus Vial] 45 unit SQ AC-SUPPER 05/28/20 01/03/23 Baclofen 10 mg PO TID PRN 12/30/22 01/03/23 traMADol HCL 50 mg PO TID PRN 12/30/22 01/03/23 Cetirizine HCl [Zyrtec] 10 mg PO DAILY 01/03/23 01/03/23 Lipase/Protease/Amylase [Deepika Bennett 72,000 units PO AC-TID 01/03/23 01/03/23 36,000 Unit Capsule] Lisinopril-Hctz 20-12.5 mg 1 tab PO DAILY 01/03/23 01/03/23 [Zestoretic 20-12.5] Metoprolol Succinate (ER) [Toprol 25 mg PO DAILY 01/03/23 01/03/23 Xl] Allergies Allergy/AdvReac Type Severity Reaction Status Date / Time No Known Allergies Allergy Verified 01/03/23 17:30 Review of Systems ROS Statement: Those systems with pertinent positive or pertinent negative responses have been documented in the HPI. ROS Other: All systems not noted in ROS Statement are negative. Constitutional: Denies: fever, chills Respiratory: Denies: cough, dyspnea Cardiovascular: Denies: chest pain, palpitations, edema Gastrointestinal: Denies: abdominal pain, nausea, vomiting Past Medical History Past Medical History: Atrial Fibrillation, Cancer, Diabetes Mellitus, Hyperlipidemia, Hypertension, Osteoarthritis (OA), Vascular Disorder Additional Past Medical History / Comment(s): PANCREATIC CANCER. ARTHRITIS IN LOWER BACK. AORTIC ANEURYSM. basal cell cancer on nose. see Dr Landeros's H & P History of Any Multi-Drug Resistant Organisms: None Reported Past Surgical History: Appendectomy, Back Surgery, Cardiac Ablation, Heart Catheterization, Orthopedic Surgery Additional Past Surgical History / Comment(s): PARTIAL PANCREAS REMOVED, ABD AORTIC ANEURYSM surgery, surgery for spinal stenosis, ARTHROSCOPIC FRANCHESCA. KNEES, EXC. PILONIDAL CYST Past Anesthesia/Blood Transfusion Reactions: No Reported Reaction Additional Past Anesthesia/Blood Transfusion Reaction / Comment(s): "Got hiccups after anesthesia a couple of times." Past Psychological History: No Psychological Hx Reported Smoking Status: Former smoker - Past Family History Mother Family Medical History: No Reported History Son(s) Family Medical History: Pulmonary Embolus Additional Family Medical History / Comment(s): . Sister(s) Family Medical History: Cancer Additional Family Medical History / Comment(s): thyroid General Exam Limitations: no limitations General appearance: alert, in no apparent distress Head exam: Present: atraumatic, normocephalic Eye exam: Present: normal appearance, PERRL, EOMI. Absent: scleral icterus, conjunctival injection ENT exam: Present: mucous membranes dry Neck exam: Present: normal inspection Respiratory exam: Present: normal lung sounds bilaterally. Absent: respiratory distress, wheezes, rales, rhonchi, stridor Cardiovascular Exam: Present: regular rate, normal rhythm, normal heart sounds. Absent: systolic murmur, diastolic murmur, rubs, gallop GI/Abdominal exam: Present: soft. Absent: distended, tenderness, guarding, rebound, rigid, mass Extremities exam: Present: normal inspection, normal capillary refill. Absent: pedal edema, calf tenderness Back exam: Present: normal inspection. Absent: CVA tenderness (R), CVA te nderness (L) Neurological exam: Present: alert Skin exam: Present: warm, dry, intact, normal color. Absent: rash Course Vital Signs 01/03/23 01/03/23 01/03/23 15:21 17:20 18:13 Temperature 99.0 F 98 F Pulse Rate 60 75 68 Respiratory 16 16 16 Rate Blood Pressure 123/66 120/75 130/70 O2 Sat by Pulse 95 98 98 Oximetry EKG Findings - EKG Results: EKG: interpreted by HARINDERD, sinus rhythm, normal axis, normal QRS EKG shows: bradycardia (Rate 56 bpm) - Blocks, Show Low, Hypertrophy, ST Abn: AV and intraventricular conduction: 1 AV block Repolarization changes or abnormalities: nonspecific abnormality, ST segment, and/or T wave Medical Decision Making - Medical Decision Making Patient is 77-year-old man here with constellation of symptoms and also physical findings pointing towards hypovolemia. The patient's workup does show elevated BUN to creatinine ratio consistent with this. The patient is feeling better with fluids here. We discussed further and the patient would like to go home at this point. We did discuss appropriate further care and follow-up as well as return parameters. The patient had a chest x-ray which I interpreted as being negative for acute i nfiltrate, congestive heart failure, pneumothorax. Was pt. sent in by a medical professional or institution (, PA, AQUA AMMONIA OPERATOR, urgent care, hospital, or [facility]...) When possible be specific @ -[No] Did you speak to anyone other than the patient for history (EMS, parent, family, police, friend...)? What history was obtained from this source @ -[The patient's did contribute history Did you review nursing and triage notes (agree or disagree)? Why? @ -[I reviewed and agree with nursing and triage notes] Were old charts reviewed (outside hosp., previous admission, EMS record, old EKG, old radiological studies, urgent care reports/EKG's, [facility] records)? Report findings @ -old charts were reviewed] Differential Diagnosis (chest pain, altered mental status, abdominal pain women, abdominal pain men, vaginal bleeding, weakness, fever, dyspnea, syncope, headache, dizziness, GI bleed, back pain, seizure, CVA, palpatations, mental health, musculoskeletal)? @ -[Differential Dizziness: Benign paroxysmal positional Vertigo, Menieres disease, otitis media, acoustic neuroma, vertebrobasilar insufficiency, cerebellar stroke, encephalitis, hypovolemic, arrhythmia, coronary artery syndrome, anemia, this is not meant to be an all-inclusive list EKG interpreted by me (3pts min.). @ -[As above] X-rays interpreted by me (1pt min.). @ -[As above CT interpreted by me (1pt min.). @ -[None done] U/S interpreted by me (1pt. min.). @ -[None done] What testing was considered but not performed or refused? (CT, X-rays, U/S, labs )? Why? @ -[None] What meds were considered but not given or refused? Why? @ -[None] Did you discuss the management of the patient with other professionals (professionals i.e. , PA, AQUA AMMONIA OPERATOR, lab, RT, psych nurse, social work case manager, briquette machine operator, teacher, botanical technical officer, hospice case manager)? Give summary @ -[No] Was smoking cessation discussed for >3mins.? @ -[No] Was critical care preformed (if so, how long)? @ -[No] Were there social determinants of health that impacted care today? How? (Homelessness, low income, unemployed, alcoholism, drug addiction, transportation, low edu. Level, literacy, decrease access to med. care, usp, rehab)? @ -[No] Was there de-escalation of care discussed even if they declined (Discuss DNR or withdrawal of care, Hospice)? DNR status @ -[No] What co-morbidities impacted this encounter? (DM, HTN, Smoking, COPD, CAD, Cancer, CVA, ARF, Chemo, Hep., AIDS, mental health diagnosis, sleep apnea, morbid obesity)? @ -[Diabetes Was patient admitted / discharged? Hospital course, mention meds given and route, prescriptions, significant lab abnormalities, going to OR and other p ertinent info. @ -[Discharged Undiagnosed new problem with uncertain prognosis? @ -[No] Drug Therapy requiring intensive monitoring for toxicity (Heparin, Nitro, Insulin, Cardizem)? @ -[No] Were any procedures done? @ -[No] Diagnosis/symptom? @ -[Acute dehydration Hyperglycemia Acute, or Chronic, or Acute on Chronic? @ -[Acute Uncomplicated (without systemic symptoms) or Complicated (systemic symptoms)? @ -[Uncomplicated Side effects of treatment? @ -[No] Exacerbation, Progression, or Severe Exacerbation? @ -[No] Poses a threat to life or bodily function? How? (Chest pain, USA, SD, pneumonia, PE, COPD, DKA, ARF, appy, cholecystitis, CVA, Diverticulitis, Homicidal, Suicidal, threat to staff... and all critical care pts) @ -[No] - Lab Data Result diagrams: 01/03/23 16:09 01/03/23 16:09 Lab Results 01/03/23 01/03/23 01/03/23 Range/Units 15:25 15:57 16:09 WBC 12.8 H (3.8-10.6) k/uL RBC 3.77 L (4.30-5.90) m/uL Hgb 12.4 L (13.0-17.5) gm/dL Hct 38.5 L (39.0-53.0) % MCV 102.1 H (80.0-100.0) fL MCH 32.9 (25.0-35.0) pg MCHC 32.3 (31.0-37.0) g/dL RDW 12.6 (11.5-15.5) % Plt Count 362 (150-450) k/uL MPV 7.3 Neutrophils % 78 % Lymphocytes % 11 % Monocytes % 8 % Eosinophils % 0 % Basophils % 0 % Neutrophils # 9.9 H (1.3-7.7) k/uL Lymphocytes # 1.5 (1.0-4.8) k/uL Monocytes # 1.0 (0-1.0) k/uL Eosinophils # 0.1 (0-0.7) k/uL Basophils # 0.1 (0-0.2) k/uL Macrocytosis Slight Sodium (137-145) mmol/L Potassium (3.5-5.1) mmol/L Chloride (98-107) mmol/L Carbon Dioxide (22-30) mmol/L Anion Gap mmol/L BUN (9-20) mg/dL Creatinine (0.66-1.25) mg/dL Est GFR (CKD-EPI)AfAm (>60 ml/min/1.73 sqM) Est GFR (CKD-EPI)NonAf (>60 ml/min/1.73 sqM) Glucose (74-99) mg/dL POC Glucose (mg/dL) 236 H (70-110) mg/dL POC Glu Switch Adjuster KARINA Daija Waldrop Plasma Lactic Acid Ymnor (0.7-2.0) mmol/L Calcium (8.4-10.2) mg/dL Total Bilirubin (0.2-1.3) mg/dL AST (17-59) U/L ALT (4-49) U/L Alkaline Phosphatase (38-126) U/L Troponin I (0.000-0.034) ng/mL NT-Pro-B Natriuret Pep pg/mL Total Protein (6.3-8.2) g/dL Albumin (3.5-5.0) g/dL Urine Color Yellow Urine Appearance Clear (Clear) Urine pH 5.5 (5.0-8.0) Ur Specific [place] 1.018 (1.001-1.035) Urine Protein Negative (Negative) Urine Glucose (UA) Negative (Negative) Urine Ketones Negative (Negative) Urine Blood Negative (Negative) Urine Nitrite Negative (Negative) Urine Bilirubin Negative (Negative) Urine Urobilinogen <2.0 (<2.0) mg/dL Ur Leukocyte Esterase Negative (Negative) 01/03/23 01/03/23 01/03/23 Range/Units 16:09 16:09 16:09 WBC (3.8-10.6) k/uL RBC (4.30-5.90) m/uL Hgb (13.0-17.5) gm/dL Hct (39.0-53.0) % MCV (80.0-100.0) fL MCH (25.0-35.0) pg MCHC (31.0-37.0) g/dL RDW (11.5-15.5) % Plt Count (150-450) k/uL MPV Neutrophils % % Lymphocytes % % Monocytes % % Eosinophils % % Basophils % % Neutrophils # (1.3-7.7) k/uL Lymphocytes # (1.0-4.8) k/uL Monocytes # (0-1.0) k/uL Eosinophils # (0-0.7) k/uL Basophils # (0-0.2) k/uL Macrocytosis Sodium 134 L (137-145) mmol/L Potassium 4.8 (3.5-5.1) mmol/L Chloride 95 L (98-107) mmol/L Carbon Dioxide 27 (22-30) mmol/L Anion Gap 12 mmol/L BUN 27 H (9-20) mg/dL Creatinine 0.93 (0.66-1.25) mg/dL Est GFR (CKD-EPI)AfAm >90 (>60 ml/min/1.73 sqM) Est GFR (CKD-EPI)NonAf 80 (>60 ml/min/1.73 sqM) Glucose 227 H (74-99) mg/dL POC Glucose (mg/dL) (70-110) mg/dL POC Glu Switch Adjuster ID Plasma Lactic Acid Mynor 1.1 (0.7-2.0) mmol/L Calcium 8.4 (8.4-10.2) mg/dL Total Bilirubin 0.4 (0.2-1.3) mg/dL AST 24 (17-59) U/L ALT 23 (4-49) U/L Alkaline Phosphatase 121 (38-126) U/L Troponin I <0.012 (0.000-0.034) ng/mL NT-Pro-B Natriuret Pep pg/mL Total Protein 7.0 (6.3-8.2) g/dL Albumin 3.6 (3.5-5.0) g/dL Urine Color Urine Appearance (Clear) Urine pH (5.0-8.0) Ur Specific [place] (1.001-1.035) Urine Protein (Negative) Urine Glucose (UA) (Negative) Urine Ketones (Negative) Urine Blood (Negative) Urine Nitrite (Negative) Urine Bilirubin (Negative) Urine Urobilinogen (<2.0) mg/dL Ur Leukocyte Esterase (Negative) 01/03/23 Range/Units 16:09 WBC (3.8-10.6) k/uL RBC (4.30-5.90) m/uL Hgb (13.0-17.5) gm/dL Hct (39.0-53.0) % MCV (80.0-100.0) fL MCH (25.0-35.0) pg MCHC (31.0-37.0) g/dL RDW (11.5-15.5) % Plt Count (150-450) k/uL MPV Neutrophils % % Lymphocytes % % Monocytes % % Eosinophils % % Basophils % % Neutrophils # (1.3-7.7) k/uL Lymphocytes # (1.0-4.8) k/uL Monocytes # (0-1.0) k/uL Eosinophils # (0-0.7) k/uL Basophils # (0-0.2) k/uL Macrocytosis Sodium (137-145) mmol/L Potassium (3.5-5.1) mmol/L Chloride (98-107) mmol/L Carbon Dioxide (22-30) mmol/L Anion Gap mmol/L BUN (9-20) mg/dL Creatinine (0.66-1.25) mg/dL Est GFR (CKD-EPI)AfAm (>60 ml/min/1.73 sqM) Est GFR (CKD-EPI)NonAf (>60 ml/min/1.73 sqM) Glucose (74-99) mg/dL POC Glucose (mg/dL) (70-110) mg/dL POC Glu Switch Adjuster ID Plasma Lactic Acid Mynor (0.7-2.0) mmol/L Calcium (8.4-10.2) mg/dL Total Bilirubin (0.2-1.3) mg/dL AST (17-59) U/L ALT (4-49) U/L Alkaline Phosphatase (38-126) U/L Troponin I (0.000-0.034) ng/mL NT-Pro-B Natriuret Pep 179 pg/mL Total Protein (6.3-8.2) g/dL Albumin (3.5-5.0) g/dL Urine Color Urine Appearance (Clear) Urine pH (5.0-8.0) Ur Specific [place] (1.001-1.035) Urine Protein (Negative) Urine Glucose (UA) (Negative) Urine Ketones (Negative) Urine Blood (Negative) Urine Nitrite (Negative) Urine Bilirubin (Negative) Urine Urobilinogen (<2.0) mg/dL Ur Leukocyte Esterase (Negative) Disposition Clinical Impression: Dehydration, Hyperglycemia Disposition: HOME SELF-CARE Condition: Good Instructions (If sedation given, give patient instructions): Dehydration (ED), Diabetic Hyperglycemia (ED) Is patient prescribed a controlled substance at d/c from ED?: No Referrals: Booker Murray MD [Primary Care Provider] - 1-2 days
[2023-01-03 16:37] LABS: Basophils # (A) 0.1 k/uL (0-0.2); Basophils % (A) 0 %; Eosinophils # (A) 0.1 k/uL (0-0.7); Eosinophils % (A) 0 %; HCT 38.5 % (39.0-53.0); HGB 12.4 gm/dL (13.0-17.5); Lymphocytes # (A) 1.5 k/uL (1.0-4.8); Lymphocytes % (A) 11 %; MCH 32.9 pg (25.0-35.0); MCHC 32.3 g/dL (31.0-37.0); MCV 102.1 fL (80.0-100.0); Macrocytosis Slight; Mean Platelet Volume 7.3; Monocytes % (A) 8 %; Neutrophils # (A) 9.9 k/uL (1.3-7.7); Neutrophils % (A) 78 %; Platelet Count 362 k/uL (150-450); RBC 3.77 m/uL (4.30-5.90); RDW 12.6 % (11.5-15.5); WBC 12.8 k/uL (3.8-10.6)
[2023-01-03 16:55] LABS: ALT 23 U/L (4-49); AST 24 U/L (17-59); African American GFR (CKD) >90 (>60 ml/min/1.73 sqM); Albumin 3.6 g/dL (3.5-5.0); Alkaline Phosphatase 121 U/L (38-126); Anion Gap 12 mmol/L; Blood Urea Nitrogen 27 mg/dL (9-20); Calcium 8.4 mg/dL (8.4-10.2); Carbon Dioxide 27 mmol/L (22-30); Chloride 95 mmol/L (98-107); Glucose 227 mg/dL (74-99); Non-African American GFR(CKD) 80 (>60 ml/min/1.73 sqM); Potassium 4.8 mmol/L (3.5-5.1); Sodium 134 mmol/L (137-145); Total Bilirubin 0.4 mg/dL (0.2-1.3)
--- NOTE | 2023-01-03 17:17 | XR ---
EXAMINATION TYPE: XR chest 2V DATE OF EXAM: 01/03/2023 COMPARISON: Chest x-ray June 05, 2020 HISTORY: Lightheadedness and weakness. TECHNIQUE: Frontal and lateral views of the chest are obtained. FINDINGS: There is mild chronic parenchymal change without suspicious focal air space opacity, pleur al effusion, or pneumothorax seen. The cardiac silhouette size is mildly enlarged. Old fracture of t he posterior right fourth rib is redemonstrated. IMPRESSION: Mild cardiomegaly without acute pulmonary process. No significant change from prior.
[2023-01-03 17:21] VITALS: TEMP 98
[2023-01-03 17:33] LABS: Appearance,Urine Clear (Clear); Bilirubin,Urine Negative (Negative); Blood,Urine Negative (Negative); Color,Urine Yellow; Glucose,Urine (UA) Negative (Negative); Ketones,Urine Negative (Negative); Leukocyte Esterase,Urine Negative (Negative); Nitrite,Urine Negative (Negative); PH, Urine 5.5 (5.0-8.0); Protein,Urine Negative (Negative); Specific Gravity,Urine 1.018 (1.001-1.035); Urobilinogen,Urine <2.0 mg/dL (<2.0)
[2023-01-03] MEDS ORDERED: INSULIN REGULAR 100 UNIT/ML VIAL (IV) SQ STA (17:47)
[2023-01-03 18:14] VITALS: BP 130/70; PULSE 68
== END 2023-01-03 18:14 | disposition home or self-care (01) ==
LOC: EC 15:09
DX: E11.65 Type 2 diabetes mellitus with hyperglycemia (principal); E86.0 Dehydration; I48.91 Unspecified atrial fibrillation; E78.5 Hyperlipidemia, unspecified; I10 Essential (primary) hypertension; M19.90 Unspecified osteoarthritis, unspecified site; Z87.891 Personal history of nicotine dependence; Z79.01 Long term (current) use of anticoagulants; Z79.4 Long term (current) use of insulin; Z79.899 Other long term (current) drug therapy
CPT/HCPCS: 36415; 71046; 80053; 81003; 83605; 83880; 84484; 85025; 93005; 99284

== ENCOUNTER 2024-11-07 05:52 | Day surgery (SDC) | payer MEDICARE ==
[2024-11-07] MEDS ORDERED: LIDOCAINE 1% (10MG/ML) FOR IV START INTRADERMA PRN (06:12)
[2024-11-07] MEDS ORDERED: LACTATED RINGERS 1,000 ML IV SCH (06:12)
[2024-11-07 06:30] VITALS: TEMP 97
[2024-11-07] MEDS: SODIUM CHLORIDE 0.9% 500 ML 500 ML IV ONE (06:55)
[2024-11-07 06:59] LABS: Glucose,Whole Blood 117 mg/dL (70-110)
[2024-11-07] MEDS ORDERED: SODIUM CHLORIDE 0.9% 1,000 ML IV SCH (07:00)
[2024-11-07] MEDS ORDERED: PROPOFOL 10 MG/ML 20 ML VIAL IV ONE (07:09)
[2024-11-07] MEDS ORDERED: LIDOCAINE 1% INJ 10MG/ML (20 ML MDV) ONE (07:09)
[2024-11-07 07:22] LABS: African American GFR (CKD) >90 (>60 ml/min/1.73 sqM); Anion Gap 4 mmol/L; Blood Urea Nitrogen 23 mg/dL (9-20); Calcium 8.6 mg/dL (8.4-10.2); Carbon Dioxide 30 mmol/L (22-30); Chloride 102 mmol/L (98-107); Glucose 130 mg/dL (74-99); Non-African American GFR(CKD) 83 (>60 ml/min/1.73 sqM); Potassium 4.6 mmol/L (3.5-5.1); Sodium 136 mmol/L (137-145)
[2024-11-07] MEDS: IV FLUID CONTINUATION 1,000 ML IV ONE (07:45)
[2024-11-07 08:34] LABS: Glucose,Whole Blood 124 mg/dL (70-110)
[2024-11-07 09:02] VITALS: BP 99/66; PULSE 66; RESP 15
--- NOTE | 2024-11-07 09:40 | CE ---
CARDIAC ELECTROPHYSIOLOGY REPORT PROCEDURES PERFORMED: Electrical cardioversion. CLINICAL INFORMATION: This is a 79-year-old gentleman with a history of paroxysmal atrial fibrillation, type 2 diabetes, hypertension, hyperlipidemia, and prominent aortic root with a pancreatic endocrine tumor for which he had surgery. He has multiple electrical cardioversions before. He has atrial fibrillation and also underwent an ablation in the past. He presented to me in the office on the with what seemed to be more or less like a coarse atrial fibrillation or a flutter, and I recommended electrical cardioversion. The patient was adequately anticoagulated with Xarelto. He was also on flecainide. He was brought in for the procedure electively after due discussion regarding risks, benefits, and options. PROCEDURE NOTE: Under the influence of an [id number] intravenous anesthetic agent with the attendance of the anesthesiologist, a single shock of 100 joules was delivered with anterior and posterior patches. The patient converted to sinus rhythm from atrial flutter. He had a flutter with variable block at a rate of 80 and after conversion, he was in a sinus rhythm at 50 beats per minute, hemodynamically stable and neurologically intact. This was a successful electrical cardioversion. He will be discharged later on today and I will see him in the office in 7 to 10 days. MMODL / IJN: [id number] /
== END 2024-11-07 09:20 | disposition home or self-care (01) ==
LOC: OR 05:52
PROVIDERS: ATTEND Internal Medicine Interventional Cardiology
DX: I25.10 Atherosclerotic heart disease of native coronary artery without angina pectoris (principal); I48.0 Paroxysmal atrial fibrillation; I71.43 Infrarenal abdominal aortic aneurysm, without rupture; I10 Essential (primary) hypertension; E11.9 Type 2 diabetes mellitus without complications; F17.210 Nicotine dependence, cigarettes, uncomplicated; Z79.899 Other long term (current) drug therapy
CPT/HCPCS: 92960; 80048; J2003; J2704

== ENCOUNTER 2025-02-04 08:49 | Day surgery (SDC) | payer MEDICARE ==
[2025-02-04] MEDS: IV FLUID CONTINUATION 1,000 ML IV ONE (09:20)
[2025-02-04] MEDS: SODIUM CHLORIDE 0.9% 1,000 ML IV SCH (09:26)
[2025-02-04] MEDS: LACTATED RINGERS 1,000 ML IV SCH (09:43)
[2025-02-04 09:47] LABS: Glucose,Whole Blood 110 mg/dL (70-110)
[2025-02-04 09:58] LABS: ALT 34 U/L (4-49); African American GFR (CKD) >90 (>60 ml/min/1.73 sqM); Albumin 4.5 g/dL (3.5-5.0); Anion Gap 11 mmol/L; Blood Urea Nitrogen 26 mg/dL (9-20); Calcium 9.1 mg/dL (8.4-10.2); Carbon Dioxide 23 mmol/L (22-30); Chloride 105 mmol/L (98-107); Glucose 119 mg/dL (74-99); Non-African American GFR(CKD) 84 (>60 ml/min/1.73 sqM); Sodium 139 mmol/L (137-145); Total Bilirubin 1.1 mg/dL (0.2-1.3); Total Protein 7.9 g/dL (6.3-8.2)
[2025-02-04 10:01] LABS: AST 36 U/L (17-59); Alkaline Phosphatase 82 U/L (38-126); Potassium 5.2 mmol/L (3.5-5.1)
[2025-02-04] MEDS ORDERED: FUROSEMIDE 10 MG/ML 2 ML VIAL ONE (11:01)
[2025-02-04] MEDS ORDERED: ISOPROTERENOL 250 MCG/1.25 ML SYR IV ONE (11:01)
[2025-02-04] MEDS ORDERED: PROPOFOL 10 MG/ML 20 ML VIAL IV ONE (11:01)
[2025-02-04] MEDS ORDERED: ONDANSETRON 4 MG/2 ML VIAL ONE (11:01)
[2025-02-04] MEDS ORDERED: PHENYLEPHRINE-0.9% NACL SYG 1,000 MCG/10 ML SYRINGE ONE (11:01)
[2025-02-04] MEDS ORDERED: HEPARIN SODIUM,PORCINE 10,000 UNIT/ML 1 ML VIAL ONE (11:01)
[2025-02-04] MEDS ORDERED: PROTAMINE SULFATE 10 MG/ML 5 ML VIAL ONE (11:01)
[2025-02-04] MEDS ORDERED: LIDOCAINE 1% INJ 10MG/ML (20 ML MDV) ONE (11:01)
[2025-02-04] MEDS ORDERED: SUCCINYLCHOLINE CHLORIDE 200 MG/10 ML VIAL IV ONE (11:01)
[2025-02-04] MEDS ORDERED: LIDOCAINE 4% LTA KIT (4 ML) TOPICAL ONE (11:01)
[2025-02-04] MEDS ORDERED: ROCURONIUM 10 MG/ML (5 ML VIAL) IV ONE (11:01)
[2025-02-04] MEDS ORDERED: fentaNYL (PF) 50 MCG/ML 2 ML AMP ONE (11:01)
[2025-02-04] MEDS: LIDOCAINE 1% INJ 10MG/ML (20 ML MDV) SQ ONE (11:48)
[2025-02-04] MEDS: HEPARIN SODIUM (1,000 UNIT/ML) 1,000 UNIT in SODIUM CHLORIDE 0.9% 1,000 ML IRRIGATION ONE (11:50)
[2025-02-04] MEDS: HEPARIN SODIUM,PORCINE 10,000 UNIT in SODIUM CHLORIDE 0.9% 1,000 ML IRRIGATION ONE (11:50)
[2025-02-04] MEDS: HEPARIN SODIUM,PORCINE (1 ML) 2,500 UNIT in SODIUM CHLORIDE 0.9% 250 ML IRRIGATION ONE (11:51)
[2025-02-04] MEDS: HEPARIN SOD,PORK IN 0.45% NACL 25,000 UNIT in 0.45% NACL 1 250ML.BAG IV ONE (12:05)
[2025-02-04] MEDS: IOPAMIDOL-370 100ML BTL INJ ONE (13:27)
[2025-02-04] MEDS ORDERED: BACLOFEN 10 MG TAB PO PRN (15:01)
[2025-02-04] MEDS ORDERED: traMADol 50 MG TAB PO PRN (15:01)
[2025-02-04] MEDS ORDERED: ACETAMINOPHEN TAB 325 MG TAB PO PRN (15:02)
[2025-02-04 15:12] LABS: Chol/HDL Ratio 3.84 Ratio; LDL Cholesterol,Calculated 113.9 mg/dL (0.0-131.0)
--- NOTE | 2025-02-04 15:22 | P.HPCAR ---
History of Present Illness This is Dr. Snyder dictating an H/P on this patient The patient was interviewed and examined IMPRESSION / ASSESSMENT: 79-year-old male patient with a history of atrial fibrillation Status post PVI and left atrial septal ablation in 2020 Recurrent episodes of atrial tachycardia with multiple cardioversions Some episodes of atrial tachycardia have an negatively oriented P wave in the inferior leads Other episodes of atrial tachycardia had a positive P waves in the inferior leads Hypertension dyslipidemia and an LDL of 114 despite being on simvastatin PLAN: Ablation for atrial fibrillation atrial tachycardia. It is quite likely we will encounter multiple arrhythmias given the varying EKG morphologies on different EKGs at different times of recurrences. Continue Xarelto Heparin dose calculated Switch from simvastatin to rosuvastatin in the future HPI Continues to have recurrent episodes of atrial fibrillation which seem quite organized. Each recurrence has a different atrial activity morphology He has failed flecainide He previously had successful ablation for A-fib with PVI and left atrial septal ablation 2020 ROS: No fever chills or rigors, no cough, phlegm or expectoration, no nausea, vomiting or diarrhea, no hematuria, dysuria, no musculoskeletal complaints, no strokes or seizures, no skin lesions. EXAMINATION: 136/73, pulse rate 79, afebrile No JVD No lower extremity edema Irregular heart rhythm No murmurs Clear lungs no rhonchi no crackles Abdomen soft nontender REVIEW OF LABS, ECG & MEDICAL DATA Sodium 139, potassium 5.2 BUN 26 and creatinine 0.83 TSH is normal at 1.4 LDL is 114, HDL is 48, triglycerides 122 Physical Exam Vitals: Vital Signs Temp Pulse Resp BP Pulse Ox 02/04/25 09:46 97.8 F 79 16 136/73 98 Intake and Output 02/04/25 02/04/25 02/04/25 06:59 14:59 22:59 Intake Total 714.1 Balance 714.1 Intake: IV 714.1 Other: Weight 94.4 kg Past Medical History Past Medical History: Atrial Fibrillation, Cancer, Diabetes Mellitus, Hyperlipidemia, Hypertension, Osteoarthritis (OA), Vascular Disorder Additional Past Medical History / Comment(s): See Dr. Snyder's H&P. hx PANCREATIC CANCER 2016-had surg., hx. AORTIC ANEURYSM. basal cell cancer on nose. History of Any Multi-Drug Resistant Organisms: None Reported Past Surgical History: Appendectomy, Back Surgery, Cardiac Ablation, Heart Catheterization, Orthopedic Surgery Additional Past Surgical History / Comment(s): PARTIAL PANCREAS REMOVED, ABD AORTIC ANEURYSM surgery, spleenectomy, spinal fusion for spinal stenosis, ARTH ROSCOPIC FRANCHESCA. KNEES, EXC. PILONIDAL CYS. Cardioversion October 2024. Past Anesthesia/Blood Transfusion Reactions: No Reported Reaction Additional Past Anesthesia/Blood Transfusion Reaction / Comment(s): "Got hiccups after anesthesia a couple of times." Smoking Status: Former smoker - Past Family History Mother Family Medical History: No Reported History Son(s) Family Medical History: Pulmonary Embolus Additional Family Medical History / Comment(s): . Sister(s) Family Medical History: Cancer Additional Family Medical History / Comment(s): thyroid Physical Examination Vital Signs Temp Pulse Resp BP Pulse Ox 02/04/25 09:46 97.8 F 79 16 136/73 98 Intake and Output 02/04/25 02/04/25 02/04/25 06:59 14:59 22:59 Intake Total 714.1 Balance 714.1 Intake: IV 714.1 Other: Weight 94.4 kg Results 02/04/25 09:25 Cardiac Enzymes 02/04/25 Range/Units 09:25 AST 36 (17-59) U/L Lipids 02/04/25 Range/Units 09:25 Triglycerides 122.00 (0.00-149.00) mg/dL Cholesterol 187.00 (0.00-200.00) mg/dL HDL Cholesterol 48.70 (40.00-60.00) mg/dL Cholesterol/HDL Ratio 3.84 Ratio Comprehensive Metabolic Panel 02/04/25 Range/Units 09:25 Sodium 139 (137-145) mmol/L Potassium 5.2 H (3.5-5.1) mmol/L Chloride 105 (98-107) mmol/L Carbon Dioxide 23 (22-30) mmol/L BUN 26 H (9-20) mg/dL Creatinine 0.83 (0.66-1.25) mg/dL Glucose 119 H (74-99) mg/dL Calcium 9.1 (8.4-10.2) mg/dL AST 36 (17-59) U/L ALT 34 (4-49) U/L Alkaline Phosphatase 82 (38-126) U/L Total Protein 7.9 (6.3-8.2) g/dL Albumin 4.5 (3.5-5.0) g/dL Current Medications Generic Name Dose Route Start Last Admin Trade Name Freq PRN Reason Stop Dose Admin Acetaminophen 650 mg 02/04/25 15:02 Acetaminophen Tab 325 Mg Tab PO 03/06/25 15:01 Q6HR PRN Mild Pain (Scale 1 to 3) Baclofen 10 mg 02/04/25 15:01 Baclofen 10 Mg Tab PO 03/06/25 15:00 TID PRN Muscle Spasm Lisinopril/HCTZ 1 each 02/05/25 09:00 Lisinopril-Hctz 20-12.5 Mg 1 Each Tab PO 03/07/25 08:59 DAILY [facility] Sodium Chloride 1,000 mls @ 20 mls/hr 02/04/25 05:55 02/04/25 09:26 Saline 0.9% IV 03/06/25 05:54 20 mls/hr .Q24H [facility] Administration Acetaminophen 1,000 mg/ IV 100 mls @ 400 mls/hr 02/04/25 15:02 Solution IVPB 02/04/25 15:16 ONCE ONE Insulin Glargine 47 unit 02/04/25 17:30 Insulin Glargine (Lantus) 100 Unit/Ml Syr SQ 03/06/25 17:29 AC-SUPPER [facility] Metoprolol Succinate 25 mg 02/05/25 09:00 Metoprolol Succinate (Er) 50 Mg Tab.Er.24h PO 03/07/25 08:59 DAILY [facility] Non-Formulary Medication 5 units 02/05/25 07:30 Insulin Lispro (Humalog) SQ 03/07/25 07:29 AC-BRKFST [facility] Non-Formulary Medication 40 mg 02/05/25 09:00 Simvastatin [Simvastatin] PO 03/07/25 08:59 DAILY [facility] Rivaroxaban 20 mg 02/05/25 09:00 Rivaroxaban 20 Mg Tab PO 03/07/25 08:59 DAILY [facility] Protocol Sodium Chloride 12 ml 02/04/25 15:02 Sodium Chloride 0.9% Flush 10 Ml Syringe IV 03/06/25 15:01 Q12HR PRN Line Flush Tramadol HCl 50 mg 02/04/25 15:01 Tramadol 50 Mg Tab PO 03/06/25 15:00 TID PRN Pain Intake and Output 02/04/25 02/04/25 02/04/25 06:59 14:59 22:59 Intake Total 714.1 Balance 714.1 Intake: IV 714.1 Other: Weight 94.4 kg Patient Weight 02/05/25 06:59 Weight 94.4 kg 02/04/25 09:25
--- NOTE | 2025-02-04 15:39 | P.EPPROC ---
- EP Procedure Note Electrophysiology Procedure Note: Diagnosis Recurrent atrial fibrillation/atrial tachycardia despite successful ablation for A-fib with PVI and left atrial septal ablation in 2020 Patient remained free of atrial fibrillation for 1 year and thereafter has had recurrent episodes of atrial tachycardia of varying morphologies He has failed flecainide Final diagnosis Focal atrial tachycardia on the anterior/septal wall of the left atrium, just beyond the transseptal puncture site. Status post successful ablation with termination Mitral reentrant atrial tachycardia, status post successful ablation with termination. Anterior mitral line/RF ablation Left atrial roof tachycardia, status post successful ablation with termination Very small fossa ovalis with a very thick intra-atrial septum above and below the limbus noted Details Patient was brought to the EP lab in a fasting state. Written informed consent was obtained prior to the procedure. The right and left groins were prepped and draped as a protocol and venous sheaths were placed. General anesthesia provided. Diagnostic catheters placed in the high right atrial area His bundle area and coronary sinus. Intracardiac echo catheter placed PentaRay catheter placed Long sheath placed. Later transseptal access to the left atrium performed The patient was in an atrial tachycardia with biphasic atrial activity in lead V1 and bifid activity in the inferior leads left and right transseptal catheterization was performed A very thick intra-atrial septum with a small fossa ovalis noted. Transseptal catheterization performed under fluoroscopic guidance and intracardiac echo. This was a difficult transseptal access because the fossa ovalis is very small but we were finally able to get the transseptal needle in the mid. And performed successful transseptal puncture with left atrial access. However this took extra time. Mapping of the left atrium was performed. A left atrial roofline was performed from the left superior to the left inferior pulmonary veins after confirming that all pulmonary veins were completely isolated. Cryoablation was used for this part of the procedure. The tachycardia cycle length was about 243 ms and with completion of the ablation there was lengthening of the tachycardia at about 260 ms, 15 to 20 ms increment. However no change in the P wave morphology noted. The esophagus was left-sided and was difficult to move completely during ablation of the left atrial roof. However shortened lesions were applied and the esophagus was deflected and successful ablation was achieved safely Following that a Penta ray catheter was placed and activation and scar mapping was performed Scar mapping confirmed that prior pulmonary vein isolation's with durable. It also confirmed a complete line of block in the left atrial roof and upper inter pulmonary venous posterior wall. Activation mapping revealed a counterclockwise circuit around the mitral annulus. RF ablation was performed from the left atrial roof area to the mitral annulus. There was lengthening of the tachycardia by about 50 ms. The tachycardia now was 310 ms and there was a change in morphology of the P waves. The P waves in lead V1 were completely upright now. Previously they were bifid in nature Since the activation was concentric nature, activation mapping was performed across this line and we confirmed complete block across the line. Following that the sheath and catheter were withdrawn into the right atrium and activation mapping of the right atrium was performed First, entrainment mapping was performed of the cavotricuspid isthmus. The post pacing interval was long consistent with absence of typical atrial flutter as t he mechanism of the tachycardia. Activation mapping of the right atrium revealed earliest activation in the fossa ovalis. The catheter was then placed in the left atrium and activation mapping revealed earliest activation on the septal side of the anterior mitral line. There was no gap along this line. Further mapping revealed early activation in the anterior wall on the septal aspect of this line. RF ablation at the site resulted in abrupt termination. Additional ablation lesions were performed for this focal atrial tachycardia in the LA anterior wall just beyond the transseptal puncture. Following that high-dose Isopril was infused. No arrhythmias were induced In sinus rhythm sinus cycle length was 1215, RI interval 245 ms, QRS 94 ms QT interval was 352 ms AH interval 106 and HV interval 45 ms LA pressure 17/9 mmHg All catheters then removed sheaths were removed and venous stasis was assured in both groins Was a long procedure. Transseptal access was difficult since the fossa ovalis was very small and the interatrial septum was extremely thick above and below the limbus Multiple maps of the left atrium and right atrium had to be performed since the patient had multiple simultaneous atrial tachycardias responsible for his arrhythmia and his recurrences The pulmonary veins were interrogated and mapped in detail and were found to be durably isolated from his ablation from 2020 The posterior left atrial septum was also successfully and durably ablated from prior ablation There is no gap between the right superior and right inferior pulmonary vein as well as the left superior and left inferior pulmonary veins at the level of the juan
--- NOTE | 2025-02-04 15:43 | P.DS ---
Providers Attending physician: Ahsan Snyder Primary care physician: Maritza Nguyen MD Hospital Course: Patient underwent successful ablation for multiple atrial tachycardias yesterday. He was monitored on telemetry Patient is doing very well. He denies any chest discomfort dizziness lightheadedness no palpitations his groins have healed well He has been ambulating around the room Heart sounds are normal Vitals are stable Breath sounds are clear Final diagnosis Focal atrial tachycardia along the anterior wall of the LA just beyond the transseptal access site in the fossa ovalis, using RF ablation Mitral reentry status post anterior RF line with termination of tachycardia with RF ablation Left atrial roof tachycardia/reentry status post successful ablation with cryoablation Diabetes, on insulin and hypertension on lisinopril hydrochlorothiazide dyslipidemia, on simvastatin and LDL is 114 mg/dL HDL is down protective triglycerides normal Normal TSH Creatinine normal Plan Continue anticoagulation, specifically for the next 2 months anticoagulation must be uninterrupted Diabetes management per PCP Stop flecainide Stop simvastatin and start rosuvastatin 40 mg p.o. daily instead and keep LDL close to 50 mg/dL. Currently his LDL is 114 mg/dL discharge home and follow-up with Dr. Snyder monitor blood pressure and keep well below 130/80 mmHg Plan - Discharge Summary Discharge Rx Participant: No New Discharge Prescriptions: New Rosuvastatin [Crestor] 40 mg PO DAILY #90 tab Discontinued Simvastatin 40 mg PO DAILY Flecainide Acetate [Tambocor] 150 mg PO Q12H No Action Rivaroxaban [Xarelto] 20 mg PO DAILY INSULIN LISPRO (HumaLOG) [humaLOG] 5 units SQ AC-BRKFST Insulin Glargine (Lantus) [Lantus Vial] 47 unit SQ AC-SUPPER traMADol HCL 50 mg PO TID PRN PRN Reason: Pain Baclofen 10 mg PO TID PRN PRN Reason: Muscle Spasm Lisinopril-Hctz 20-12.5 mg [Zestoretic 20-12.5] 1 tab PO DAILY Lipase/Protease/Amylase [Deepika Bennett 36,000 Unit Capsule] 2 cap PO AC-TID Metoprolol Succinate (ER) [Toprol Xl] 25 mg PO DAILY INSULIN LISPRO (HumaLOG) [HumaLOG] 6 units SQ AC-BID Discharge Medication List Rivaroxaban [Xarelto] 20 mg PO DAILY 05/22/14 [History] INSULIN LISPRO (HumaLOG) [humaLOG] 5 units SQ AC-BRKFST 04/26/17 [History] Insulin Glargine (Lantus) [Lantus Vial] 47 unit SQ AC-SUPPER 05/28/20 [History] Baclofen 10 mg PO TID PRN 12/30/22 [History] traMADol HCL 50 mg PO TID PRN 12/30/22 [History] Lipase/Protease/Amylase [Deepika Bennett 36,000 Unit Capsule] 2 cap PO AC-TID 01/03/23 [History] Lisinopril-Hctz 20-12.5 mg [Zestoretic 20-12.5] 1 tab PO DAILY 01/03/23 [History] INSULIN LISPRO (HumaLOG) [HumaLOG] 6 units SQ AC-BID 11/05/24 [History] Metoprolol Succinate (ER) [Toprol Xl] 25 mg PO DAILY 11/05/24 [History] Rosuvastatin [Crestor] 40 mg PO DAILY #90 tab 02/04/25 [Rx] Follow up Appointment(s)/Referral(s): Ahsan Snyder MD [STAFF PHYSICIAN] - 6 Weeks (Follow-up with Dr. Landeros 1 week post ablation Follow with Dr. Snyder in March/April. Office will call with Follow up appointments date and time.) Activity/Diet/Wound Care/Special Instructions: Post EP study - Ablation instructions 1. Keep access sites dry for 2 days. 2. No heavy lifting or straining for 2 days. 3. Avoid bending the hips repeatedly for 2 days. 4. You may go up and down stairs slowly 5. If you have had an ablation for atrial fibrillation or atrial flutter and are on a blood thinner, do not stop the blood thinner even temporarily for 3 months post ablation Call if the following is noted 1. Bleeding, increasing swelling or pain at the access sites. 2. Increasing chest discomfort, especially upon taking a deep breath. 3. Increasing shortness of breath, at rest or with exertion. 4. Undue cough / phlegm 5. Difficulty or pain while swallowing. 6. Pain or change in color in the extremities. 7. Fever, chills, rigors. 8. Increasing headache or neurologic symptoms. 9. Dizziness, fainting, palpitations For patients who have undergone an A-fib ablation /atrial flutter ablation Strict instruction; do NOT stop anticoagulation (Eliquis/Xarelto/Pradaxa) for the next 2 months temporarily, for any elective, nonurgent surgery. This increases the risk of stroke, post A-fib ablation. Stop Flecainide stop simvastatin Start rosuvastatin 40 mg p.o. daily Discharge Disposition: HOME SELF-CARE
[2025-02-04] MEDS: ACETAMINOPHEN IV (For NPO) 1,000 MG in EMPTY BAG 1 BAG IVPB ONE (16:03)
[2025-02-04 17:38] LABS: Glucose,Whole Blood 81 mg/dL (70-110)
[2025-02-04 19:51] LABS: Glucose,Whole Blood 185 mg/dL (70-110)
[2025-02-04] MEDS: INSULIN GLARGINE (LANTUS) 100 UNIT/ML SYR SQ SCH (20:21)
[2025-02-05 06:09] LABS: Glucose,Whole Blood 121 mg/dL (70-110)
[2025-02-05] MEDS: INSULIN LISPRO (HumaLOG) 100 UNIT/ML 10 mL VL SQ SCH (06:12)
[2025-02-05 07:47] VITALS: BP 109/66; PULSE 61; RESP 15; TEMP 97.7
[2025-02-05] MEDS: RIVAROXABAN 20 MG TAB PO SCH (08:11)
[2025-02-05] MEDS: ATORVASTATIN 20 MG TAB PO SCH (08:15)
[2025-02-05] MEDS: LISINOPRIL-HCTZ 20-12.5 MG 1 EACH TAB PO SCH (08:15)
[2025-02-05] MEDS: METOPROLOL SUCCINATE (ER) 25 MG TAB.ER.24H PO SCH (08:15)
== END 2025-02-05 10:39 | disposition home or self-care (01) ==
LOC: CATHEP 08:49 → 6NMEDSUR 14:58 → CATHEP 02-05 10:39
PROVIDERS: ATTEND Internal Medicine Clinical Cardiac Electrophysiology
DX: I47.19 Other supraventricular tachycardia (principal); I48.19 Other persistent atrial fibrillation; I10 Essential (primary) hypertension; E11.9 Type 2 diabetes mellitus without complications; E78.5 Hyperlipidemia, unspecified; I71.21 Aneurysm of the ascending aorta, without rupture; I99.9 Unspecified disorder of circulatory system; Z79.4 Long term (current) use of insulin; Z79.01 Long term (current) use of anticoagulants; Z79.899 Other long term (current) drug therapy; Z87.891 Personal history of nicotine dependence; Z85.07 Personal history of malignant neoplasm of pancreas; Z82.49 Family history of ischemic heart disease and other diseases of the circulatory system
CPT/HCPCS: 93623; 93655; 93656; 93657; 86900; 86901; 80061; 80053; 84443; 86850; C1759; C1894; C1769; C1760 ×2; C1731; C1733; C1766; C1730; C1732; J0330; J2720; J1644 ×4; J2405; J2003; J3010; J0131; J2704; Q9967; J2371; J1938